=== PATIENT | female | born 2000 | race American Indian/Alaskan Native ===

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

== ENCOUNTER 2018-09-22 19:53 | Emergency (ER) | payer MEDICAID ==
[2018-09-22] MEDS ORDERED: Ibuprofen 800 MG Tab PO ONE (20:07)
--- NOTE | 2018-09-22 20:08 | EDM.PDOC ---
ED HPI GENERAL MEDICAL PROBLEM - General Chief Complaint: ENT Problem Stated Complaint: SWOLLEN TONSILLES Time Seen by Provider: 09/22/18 20:07 Source of Information: Reports: Patient History Limitations: Reports: No Limitations - History of Present Illness INITIAL COMMENTS - FREE TEXT/NARRATIVE: sick with fever sore throat 2 weeks not better. Throat Pain Score (Numeric/FACES): 8 - Related Data Allergies Allergy/AdvReac Type Severity Reaction Status Date / Time No Known Allergies Allergy Verified 09/22/18 20:11 Home Meds: Home Meds . 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: 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 History: Reports: None Neurological History: Reports: None Psychiatric History: Reports: None Endocrine/Metabolic History: Reports: Diabetes, Gestational Hematologic History: Reports: None Immunologic History: Reports: None Oncologic (Cancer) History: Reports: None Dermatologic History: Reports: None - Infectious Disease History Infectious Disease History: Reports: None - Past Surgical History Head Surgeries/Procedures: Reports: None HEENT Surgical History: Reports: None Cardiovascular Surgical History: Reports: None Respiratory Surgical History: Reports: None GI Surgical History: Reports: None Female Surgical History: Reports: None Endocrine Surgical History: Reports: None Neurological Surgical History: Reports: None 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 Surgical History: Reports: None Oncologic Surgical History: Reports: None Dermatological Surgical History: Reports: None Social & Family History - Family History HEENT: Reports: None Cardiac: Reports: Hypertension Respiratory: Reports: None GI: Reports: None : Reports: None OBGYN: Reports: None 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: Reports: None Neurological: Reports: None Psychiatric: Reports: None Endocrine/Metabolic: Reports: Diabetes, type II Hematologic: Reports: None Immunologic: Reports: None Dermatologic: Reports: None Oncologic: Reports: None - Caffeine Use Caffeine Use: Reports: None - Living Situation & Occupation Living situation: Reports: with Family ED ROS ENT - Review of Systems Review Of Systems: ROS reveals no pertinent complaints other than HPI. ED EXAM, ENT - Physical Exam Exam: See Below Exam Limited By: No Limitations General Appearance: Alert, WD/WN, Mild Distress, Other (discomfort) Ears: Hearing Grossly Normal Mouth/Throat: Pharyngeal Erythema, Tonsillar Erythema, Tonsillar Swelling Head: Atraumatic Neck: Non-Tender, Full Range of Motion Respiratory/Chest: No Respiratory Distress Cardiovascular: Regular Rate, Rhythm GI/Abdominal: Soft, Non-Tender Neurological: Alert, Oriented, Normal Cognition, Normal Gait, No Motor/Sensory Deficits Psychiatric: Flat Affect Skin: Warm, Dry, Normal Color Lymphatic: No Adenopathy Course - Vital Signs Last Recorded V/S: Last Vital Signs Temp 38.3 C H 09/22/18 20:12 Pulse 114 H 09/22/18 20:11 Resp 18 09/22/18 20:11 BP 137/75 09/22/18 20:11 Pulse Ox 99 09/22/18 20:11 - Orders/Labs/Meds Orders: Active Orders 24 hr Category Date Time Status Amoxicillin [Amoxil] Med 09/22/18 20:21 Once 500 mg PO ONETIME ONE Meds: Medications Discontinued Medications Generic Name Dose Route Start Last Admin Trade Name Connor PRN Reason Stop Dose Admin Ibuprofen 800 mg 09/22/18 20:07 09/22/18 20:12 Motrin PO 09/22/18 20:08 800 mg ONETIME ONE Administration - Re-Assessments/Exams Free Text/Narrative Re-Assessment/Exam: 09/22/18 20:22 results discussed with pt Departure - Departure Time of Disposition: 20:22 Disposition: Home, Self-Care 01 Condition: Good Clinical Impression: Streptococcal tonsillopharyngitis - Discharge Information Instructions: Strep Throat, [id number] Forms: ED Department Discharge Additional Instructions: 1) avoid solid foods 2) take tylenol or motrin for fever and aches 3) recheck as needed rx givven; amox 250mg tid x 30 - My Orders Last 24 Hours: My Active Orders 09/22/18 20:21 Amoxicillin [Amoxil] 500 mg PO ONETIME ONE - Assessment/Plan Last 24 Hours: My Active Orders 09/22/18 20:21 Amoxicillin [Amoxil] 500 mg PO ONETIME ONE
[2018-09-22 20:16] VITALS: BP 137/75
[2018-09-22] MEDS ORDERED: Amoxicillin 500 MG Cap PO ONE (20:21)
== END 2018-09-22 20:33 | disposition home or self-care (01) ==
LOC: DL.ED 19:53
DX: J03.00 Acute streptococcal tonsillitis, unspecified (principal)
CPT/HCPCS: 87430; 99282; A9270

== ENCOUNTER 2018-10-13 04:25 | Emergency (ER) | payer MEDICAID ==
[2018-10-13] MEDS ORDERED: Sodium Chloride 0.9% 10 ML Syringe FLUSH PRN (04:29)
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
[2018-10-13 04:44] VITALS: BP 132/86; PULSE 120
[2018-10-13 04:51] LABS: ANION GAP 16.4; CHLORIDE,CL 107 mmol/L (101-111); SODIUM,NA 141 mmol/L (135-145)
[2018-10-13 04:53] LABS: ACETAMINOPHEN < 10.0 ug/mL
[2018-10-13] MEDS ORDERED: Lidocaine 1% 30 ML SDV INJECT ONE (04:53)
[2018-10-13] MEDS ORDERED: Bacitracin Oint 1 GM U/D Packet TOP ONE (04:53)
[2018-10-13] MEDS ORDERED: Sodium Chloride 0.9% 1,000 ML IV ONE (04:53)
== END 2018-10-13 05:40 | disposition home or self-care (01) ==
LOC: DL.ED 04:25
DX: S61.512A Laceration without foreign body of left wrist, initial encounter (principal); F10.129 Alcohol abuse with intoxication, unspecified; Y90.8 Blood alcohol level of 240 mg/100 ml or more; X78.8XXA Intentional self-harm by other sharp object, initial encounter
CPT/HCPCS: 12002; 36415; 80053; 80305; 81001; 81025; 85025; 87086; 87088; 87186; 99285; G0480; J2001

== ENCOUNTER 2019-08-05 01:31 | Emergency (ER) | payer MEDICAID ==
--- NOTE | 2019-08-05 02:11 | EDM.PDOC ---
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 Patient for the past 3-4 days has had increasing frequency and severity of left lower quadrant pain that radiates into her back. She has had nausea without vomiting. No flank pain. She does have some back pain. No vaginal discharge or bleeding. She does complain of painful frequent urination. No fever no chills. No weakness dizziness lightheadedness. She is a 2 para 1 about 6 weeks gestation and has not had an ultrasound. 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: 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 History: Reports: None Neurological History: Reports: None Psychiatric History: Reports: None Other Psychiatric History: self harm/cutting Endocrine/Metabolic History: Reports: Diabetes, Gestational Hematologic History: Reports: None Immunologic History: Reports: None Oncologic (Cancer) History: Reports: None Dermatologic History: Reports: None - Infectious Disease History Infectious Disease History: Reports: None - Past Surgical History Head Surgeries/Procedures: Reports: None HEENT Surgical History: Reports: None Cardiovascular Surgical History: Reports: None Respiratory Surgical History: Reports: None GI Surgical History: Reports: None Female Surgical History: Reports: None Endocrine Surgical History: Reports: None Neurological Surgical History: Reports: None 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 Surgical History: Reports: None Oncologic Surgical History: Reports: None Dermatological Surgical History: Reports: None Social & Family History - Family History Family Medical History: Noncontributory HEENT: Reports: None Cardiac: Reports: Hypertension Respiratory: Reports: None GI: Reports: None : Reports: None OBGYN: Reports: None 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: Reports: None Neurological: Reports: None Psychiatric: Reports: None Endocrine/Metabolic: Reports: Diabetes, type II Hematologic: Reports: None Immunologic: Reports: None Dermatologic: Reports: None Oncologic: Reports: None - Tobacco Use Smoking Status *Q: Never Smoker Second Hand Smoke Exposure: No - Caffeine Use Caffeine Use: Reports: Soda - Recreational Drug Use Recreational Drug Use: No - Living Situation & Occupation Living situation: Reports: with Family ED ROS GENERAL - Review of Systems Review Of Systems: Comprehensive ROS is negative, except as noted in HPI. ED EXAM, GI/ABD - Physical Exam Exam: See Below Exam Limited By: No Limitations General Appearance: Alert, WD/WN, No Apparent Distress Respiratory/Chest: No Respiratory Distress, Lungs Clear, Normal Breath Sounds, No Accessory Muscle Use Cardiovascular: Normal Peripheral Pulses, Regular Rate, Rhythm GI/Abdominal Exam: Normal Bowel Sounds, Soft, Tender (Mild left lower quadrant without guarding or rebound. ) Back Exam: No: CVA Tenderness (L), CVA Tenderness (R) Extremities: Normal Inspection, Normal Range of Motion, Normal Capillary Refill Neurological: Alert, Oriented, Normal Cognition, No Motor/Sensory Deficits Psychiatric: Normal Affect, Normal Mood Skin Exam: Warm, Dry, Intact, Normal Color Course - Vital Signs Last Recorded V/S: Last Vital Signs Temp 37.0 C 08/05/19 04:47 Pulse 98 08/05/19 04:47 Resp 19 08/05/19 04:47 BP 127/75 08/05/19 04:47 Pulse Ox 99 08/05/19 04:47 - Orders/Labs/Meds Orders: Active Orders 24 hr Category Date Time Status CULTURE URINE [RM] Stat Lab 08/05/19 02:13 Received cephALEXin [Keflex] Med 08/05/19 05:12 Once 500 mg PO ONETIME ONE Labs: Laboratory Tests 08/05/19 08/05/19 08/05/19 Range/Units 02:03 02:03 02:03 WBC 12.0 H (5.0-10.0) 10^3/uL RBC 4.22 (4.2-5.4) 10^6/uL Hgb 12.7 D (12.0-16.0) g/dL Hct 36.7 L (37.0-47.0) % MCV 87.0 (80-100) fL MCH 30.1 (27.0-34.0) pg MCHC 34.6 (33.0-35.0) g/dL Plt Count 281 D (150-450) 10^3/uL Neut % (Auto) 67.4 (42.2-75.2) % Lymph % (Auto) 22.5 (20.5-50.1) % [place] % (Auto) 8.2 H (2-8) % Eos % (Auto) 1.7 (1.0-3.0) % Baso % (Auto) 0.2 (0.0-1.0) % Sodium 134 L (135-145) mmol/L Potassium 3.5 L (3.6-5.0) mmol/L Chloride 106 (101-111) mmol/L Carbon Dioxide 21.0 (21.0-31.0) mmol/L Anion Gap 10.5 BUN 8 (7-18) mg/dL Creatinine 0.5 L (0.6-1.3) mg/dL Est Cr Clr Drug Dosing 168.02 mL/min Estimated GFR (MDRD) > 60 BUN/Creatinine Ratio 16.00 Glucose 178 H (74-105) mg/dL Calcium 8.8 (8.4-10.2) mg/dl Total Bilirubin 0.5 (0.2-1.0) mg/dL AST 26 (10-42) IU/L ALT 39 (10-60) IU/L Alkaline Phosphatase 92 (42-121) IU/L Total Protein 7.8 (6.7-8.2) g/dl Albumin 4.0 (3.2-5.5) g/dl Globulin 3.8 Albumin/Globulin Ratio 1.05 HCG, Quant 662 H (0-25) mIU/ml Beta HCG, Quant TNP Urine Color (YELLOW) Urine Appearance (CLEAR) Urine pH (5.0-9.0) Ur Specific R[place] (1.005-1.030) Urine Protein (NEGATIVE) Urine Glucose (UA) (NEGATIVE) Urine Ketones (NEGATIVE) Urine Occult Blood (NEGATIVE) Urine Nitrite (NEGATIVE) Urine Bilirubin (NEGATIVE) Urine Urobilinogen (0.2-1.0) mg/dL Ur Leukocyte Esterase (NEGATIVE) Urine RBC /HPF Urine WBC (0-5/HPF) /HPF Ur Epithelial Cells (NOT SEEN) /HPF Amorphous Sediment (NOT SEEN) /HPF Urine Bacteria (0-FEW/HPF) /HPF Urine Opiates Screen (NEGATIVE) Ur Oxycodone Screen (NEGATIVE) Urine Methadone Screen (NEGATIVE) Ur Barbiturates Screen (NEGATIVE) U Tricyclic Antidepress (NEGATIVE) Ur Phencyclidine Scrn (NEGATIVE) Ur Amphetamine Screen (NEGATIVE) U Methamphetamines Scrn (NEGATIVE) Urine MDMA Screen (NEGATIVE) U Benzodiazepines Scrn (NEGATIVE) Urine Cocaine Screen (NEGATIVE) U Marijuana (THC) Screen (NEGATIVE) 08/05/19 08/05/19 Range/Units 02:13 02:13 WBC (5.0-10.0) 10^3/uL RBC (4.2-5.4) 10^6/uL Hgb (12.0-16.0) g/dL Hct (37.0-47.0) % MCV (80-100) fL MCH (27.0-34.0) pg MCHC (33.0-35.0) g/dL Plt Count (150-450) 10^3/uL Neut % (Auto) (42.2-75.2) % Lymph % (Auto) (20.5-50.1) % [place] % (Auto) (2-8) % Eos % (Auto) (1.0-3.0) % Baso % (Auto) (0.0-1.0) % Sodium (135-145) mmol/L Potassium (3.6-5.0) mmol/L Chloride (101-111) mmol/L Carbon Dioxide (21.0-31.0) mmol/L Anion Gap BUN (7-18) mg/dL Creatinine (0.6-1.3) mg/dL Est Cr Clr Drug Dosing mL/min Estimated GFR (MDRD) BUN/Creatinine Ratio Glucose (74-105) mg/dL Calcium (8.4-10.2) mg/dl Total Bilirubin (0.2-1.0) mg/dL AST (10-42) IU/L ALT (10-60) IU/L Alkaline Phosphatase (42-121) IU/L Total Protein (6.7-8.2) g/dl Albumin (3.2-5.5) g/dl Globulin Albumin/Globulin Ratio HCG, Quant (0-25) mIU/ml Beta HCG, Quant Urine Color Yellow (YELLOW) Urine Appearance Cloudy (CLEAR) Urine pH 7.0 (5.0-9.0) Ur Specific R[place] 1.025 (1.005-1.030) Urine Protein Negative (NEGATIVE) Urine Glucose (UA) 100 H (NEGATIVE) Urine Ketones Negative (NEGATIVE) Urine Occult Blood Negative (NEGATIVE) Urine Nitrite Negative (NEGATIVE) Urine Bilirubin Negative (NEGATIVE) Urine Urobilinogen 0.2 (0.2-1.0) mg/dL Ur Leukocyte Esterase Small H (NEGATIVE) Urine RBC Not seen /HPF Urine WBC 5-10 H (0-5/HPF) /HPF Ur Epithelial Cells Moderate H (NOT SEEN) /HPF Amorphous Sediment Moderate H (NOT SEEN) /HPF Urine Bacteria Few (0-FEW/HPF) /HPF Urine Opiates Screen Negative (NEGATIVE) Ur Oxycodone Screen Negative (NEGATIVE) Urine Methadone Screen Negative (NEGATIVE) Ur Barbiturates Screen Negative (NEGATIVE) U Tricyclic Antidepress Negative (NEGATIVE) Ur Phencyclidine Scrn Negative (NEGATIVE) Ur Amphetamine Screen Negative (NEGATIVE) U Methamphetamines Scrn Negative (NEGATIVE) Urine MDMA Screen Negative (NEGATIVE) U Benzodiazepines Scrn Negative (NEGATIVE) Urine Cocaine Screen Negative (NEGATIVE) U Marijuana (THC) Screen Negative (NEGATIVE) - Re-Assessments/Exams Free Text/Narrative Re-Assessment/Exam: 08/05/19 05:22 UA appears mildly infectious will start on Cephalexin and culture the urine. HCG is mid 600s US per radiology no intrauterine gestational sac with estimated gestational age of 5 weeks 4 days. No embryo or heart rate identified. Recommend correlation with serial beta hCGs to assess for interval change in short-term follow-up repeat scan as clinically indicated. We will have the patient see her OB provider in the next 48 hours and have quant Hcg evaluated. Cephalexin and urine culture. She is understanding of this and her questions answered. She is comfortable with the plan. Departure - Departure Time of Disposition: 05:12 Disposition: Home, Self-Care 01 Clinical Impression: 5 weeks gestation of UTI (urinary tract infection) Qualifiers: Urinary tract infection type: site unspecified Hematuria presence: without hematuria Qualified Code(s): N39.0 - Urinary tract infection, site not specified - Discharge Information Instructions: Urinary Tract Infection, Adult, [id number] Forms: ED Department Discharge Additional Instructions: Increase fluids over the next few days. Cephalexin 1 capsule 4 times a day for the next 7 days. RX given to the patient. #28 See PCP or OB provider in 2 days for recheck of Hcg quantitative in the blood. Return to the ED if new or worsening symptoms. Sepsis Event Note - Evaluation Sepsis Screening Result: No Definite Risk - Focused Exam Vital Signs: Vital Signs Temp Pulse Resp BP Pulse Ox 08/05/19 04:47 37.0 C 98 19 127/75 99 08/05/19 01:49 36.4 C 89 19 113/75 100 Date Exam was Performed: 08/05/19 Time Exam was Performed: 05:12 - My Orders Last 24 Hours: My Active Orders 08/05/19 02:13 CULTURE URINE [RM] Stat 08/05/19 05:12 cephALEXin [Keflex] 500 mg PO ONETIME ONE - Assessment/Plan Last 24 Hours: My Active Orders 08/05/19 02:13 CULTURE URINE [RM] Stat 08/05/19 05:12 cephALEXin [Keflex] 500 mg PO ONETIME ONE Assessment:: 5 weeks gestation. UTI Plan: Increase fluids over the next few days. Cephalexin 1 capsule 4 times a day for the next 7 days. RX given to the patient. #28 See PCP or OB provider in 2 days for recheck of Hcg quantitative in the blood. Return to the ED if new or worsening symptoms.
[2019-08-05 02:29] LABS: ANION GAP 10.5; CHLORIDE,CL 106 mmol/L (101-111); SODIUM,NA 134 mmol/L (135-145)
[2019-08-05 04:48] VITALS: BP 127/75; PULSE 98
[2019-08-05] MEDS ORDERED: Cephalexin 500 MG Cap PO ONE (05:12)
== END 2019-08-05 05:23 | disposition home or self-care (01) ==
LOC: DL.ED 01:31
DX: O23.41 Unspecified infection of urinary tract in pregnancy, first trimester (principal); Z3A.01 Less than 8 weeks gestation of pregnancy
CPT/HCPCS: 36415; 76815; 76817; 80053; 80305; 81001; 84702; 85025; 87086; 87088; 87186; 99284; A9270

== ENCOUNTER 2020-03-22 20:08 | Inpatient (IN) | payer MEDICAID, OTHER ==
[2020-03-22] MEDS ORDERED: Penicillin G Potassium 5 MILLUNITS in Sodium Chloride 0.9% 100 ML IV ONE (20:50)
[2020-03-22] MEDS ORDERED: Lactated Ringers 1,000 ML IV SCH ×2 (21:00→22:15)
[2020-03-22] MEDS ORDERED: fentaNYL 100 MCG/2 ML SDV IVPUSH PRN (22:04)
[2020-03-22] MEDS ORDERED: Carboprost Tromethamine 250 MCG/1 ML Amp IM PRN (22:04)
[2020-03-22] MEDS ORDERED: Lactated Ringers 1,000 ML IV ONE (22:04)
[2020-03-22] MEDS ORDERED: Lidocaine 1% 30 ML SDV INJECT PRN (22:04)
[2020-03-22] MEDS ORDERED: Sodium Chloride 0.9% 10 ML Syringe FLUSH PRN (22:04)
[2020-03-22] MEDS ORDERED: Ondansetron 4 MG/2 ML SDV IVPUSH PRN (22:04)
[2020-03-22] MEDS ORDERED: Methylergonovine 0.2 MG/1 ML Amp IM PRN (22:04)
[2020-03-22] MEDS ORDERED: Tranexamic Acid 1,000 MG in Sodium Chloride 0.9% 100 ML IV PRN (22:04)
[2020-03-22] MEDS ORDERED: Butorphanol 2 MG/ML SDV IVPUSH PRN ×2 (22:04)
[2020-03-22] MEDS ORDERED: Misoprostol 400 MCG (4 X 100 MCG TAB) RECTAL PRN (22:04)
[2020-03-22] MEDS ORDERED: Oxytocin/Normal Saline 30 UNIT/500 ML BAG IV SCH (22:15)
[2020-03-23] MEDS ORDERED: Sodium Chloride 0.9% 20 ML SDV ONE (00:01)
[2020-03-23] MEDS ORDERED: fentaNYL 100 MCG/2 ML SDV ITHECAL ONE (00:01)
[2020-03-23] MEDS ORDERED: Sodium Bicarbonate 4.2% 2.5 MEQ/5 ML SDV ONE ×2 (00:01→00:07)
[2020-03-23] MEDS ORDERED: EPINEPHrine 1 MG/1 ML Amp ONE ×2 (00:01→00:07)
[2020-03-23] MEDS ORDERED: fentaNYL 100 MCG/2 ML SDV ONE (00:07)
--- NOTE | 2020-03-23 00:34 | PCM.SN.2 ---
- Free Text/Narrative Note: Intrathecal, sitting position, sterile prep and drape. 1% lidocaine with bicarb for skinwheal to L2 L3 interspace. Introducer, 24 ga pencan x 1. Pos CSF, neg heme, neg parasthesia. 1:1000 pf epi wash, 20 mcg pf sufenta, 30 mcg pf fentanyl, 0.4 ml pf ns and 6 mg of 0.75% marcaine injected after CSF aspiration. Pt to L lateral position. Procedure time 0005 to 0035
--- NOTE | 2020-03-23 00:39 | PCM.LDHP ---
L&D History of Present Illness - General Date of Service: 03/22/20 Admit Problem/Dx: Patient Status Order with Admit Dx/Problem 03/22/20 22:04 Patient Status [ADT] Routine Admission Diagnosis/Problem Admission Diagnosis/Problem care Source of Information: Patient History Limitations: Reports: No Limitations - History of Present Illness Introduction:: 19-year-old at 37w1d presents to L&D for gross SROM at 1930. Patient was last seen in the clinic in January 2020. She is having some contractions that are regular but they are not very strong at this time. No vaginal bleeding. Baby has been active. No new headaches or vision changes. has been complicated by limited care, gestational diabetes (diet controlled) and history of chlamydia in --treated but test for cure not done. GBS is unknown. - Related Data Allergies/Adverse Reactions: Allergies Allergy/AdvReac Type Severity Reaction Status Date / Time No Known Allergies Allergy Verified 03/22/20 20:30 Home Medications: Home Meds Prenat 115/Iron Fum/Folic/Dss [ 19 Tablet] 1 tab PO DAILY 08/05/19 [History] Past Medical History - Past Health History Medical/Surgical History: Denies Medical/Surgical History HEENT History: Reports: None Cardiovascular History: Reports: None Respiratory History: Reports: None Gastrointestinal History: Reports: Gastritis Genitourinary History: Reports: None, STD, Other (See Below) Other Genitourinary History: chlamydia treated [employer] History: Reports: Other OB/BYN History: 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 History: Reports: None Neurological History: Reports: None Psychiatric History: Reports: None Other Psychiatric History: self harm/cutting Endocrine/Metabolic History: Reports: Diabetes, Gestational Hematologic History: Reports: None Immunologic History: Reports: None Oncologic (Cancer) History: Reports: None Dermatologic History: Reports: None - Infectious Disease History Infectious Disease History: Reports: None - Past Surgical History Head Surgeries/Procedures: Reports: None HEENT Surgical History: Reports: None Cardiovascular Surgical History: Reports: None Respiratory Surgical History: Reports: None GI Surgical History: Reports: None Female Surgical History: Reports: None Endocrine Surgical History: Reports: None Neurological Surgical History: Reports: None 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 Surgical History: Reports: None Oncologic Surgical History: Reports: None Dermatological Surgical History: Reports: None Social & Family History - Family History Family Medical History: Noncontributory HEENT: Reports: None Cardiac: Reports: Hypertension Respiratory: Reports: None GI: Reports: None : Reports: None OBGYN: Reports: None 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: Reports: None Neurological: Reports: None Psychiatric: Reports: None Endocrine/Metabolic: Reports: Diabetes, type II Hematologic: Reports: None Immunologic: Reports: None Dermatologic: Reports: None Oncologic: Reports: None - Tobacco Use Smoking Status *Q: Never Smoker Second Hand Smoke Exposure: No - Caffeine Use Caffeine Use: Reports: Coffee - Recreational Drug Use Recreational Drug Use: No - Living Situation & Occupation Living situation: Reports: with Family H&P Review of Systems - Review of Systems: Review Of Systems: See Below General: Reports: No Symptoms HEENT: Reports: No Symptoms Pulmonary: Reports: No Symptoms Cardiovascular: Reports: No Symptoms Gastrointestinal: Reports: No Symptoms 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: Reports: No Symptoms Skin: Reports: No Symptoms L&D Exam - Exam Exam: See Below - Vital Signs Vital Signs: Last Vital Signs Temp 36.9 C 03/22/20 22:23 Pulse 58 L 03/22/20 22:23 Resp 18 03/22/20 22:23 BP 119/67 03/22/20 22:23 Pulse Ox Weight: 89.358 kg - OB Specific Contraction Duration (sec): 40-60 Contraction Frequency (min): irregular Contraction Intensity: Mild to Moderate - Mauro Score Mauro Score Cervix Position: Posterior Mauro Score Consistency: Soft Mauro Score Effacement: 51-70% Mauro Score Dilation: > 5 cm Mauro Score Infant's Station: -2 Mauro Score Total: 8 - Exam General: Alert, Oriented HEENT: Conjunctiva Clear Lungs: Clear to Auscultation, Normal Respiratory Effort Cardiovascular: Regular Rate, Regular Rhythm. No: Systolic Murmur, Diastolic Murmur Genitourinary: Normal external exam Back Exam: Normal Inspection Extremities: Normal Inspection, No Pedal Edema Skin: Warm, Dry, Intact - Patient Data Lab Results Last 24 hrs: Laboratory Results - last 24 hr 03/22/20 03/22/20 03/22/20 Range/Units 20:39 21:05 21:33 WBC 10.7 H (5.0-10.0) 10^3/uL RBC 3.91 L (4.2-5.4) 10^6/uL Hgb 10.2 L (12.0-16.0) g/dL Hct 31.6 L (37.0-47.0) % MCV 80.8 D (80-100) fL MCH 26.1 L (27.0-34.0) pg MCHC 32.3 L (33.0-35.0) g/dL Plt Count 248 (150-450) 10^3/uL Urine Opiates Screen Negative (NEGATIVE) Ur Oxycodone Screen Negative (NEGATIVE) Urine Methadone Screen Negative (NEGATIVE) Ur Barbiturates Screen Negative (NEGATIVE) U Tricyclic Antidepress Negative (NEGATIVE) Ur Phencyclidine Scrn Negative (NEGATIVE) Ur Amphetamine Screen Negative (NEGATIVE) U Methamphetamines Scrn Negative (NEGATIVE) Urine MDMA Screen Negative (NEGATIVE) U Benzodiazepines Scrn Negative (NEGATIVE) Urine Cocaine Screen Negative (NEGATIVE) U Marijuana (THC) Screen Positive H (NEGATIVE) SARS CoV-2 RNA Rapid NAJMA Negative (NEGATIVE) Result Diagrams: 03/22/20 21:05 - Problem List (1) care in third trimester SNOMED Code(s): 504554683, 13230936, 28622878, 200308631, 368784936 ICD Code: Z34.93 - ENCNTR FOR SUPRVSN OF NORMAL PREG, UNSP, THIRD TRIMESTER Status: Acute Current Visit: Yes (2) Chlamydia infection affecting SNOMED Code(s): 5342201714939 ICD Code: O98.819 - OTH MATERNAL INFEC/PARASTC DISEASES COMP PREG, UNSP TRI; A74.9 - CHLAMYDIAL INFECTION, UNSPECIFIED Status: Acute Current Visit: Yes (3) Anemia affecting in third trimester SNOMED Code(s): 03382175, 49617501 ICD Code: O99.013 - ANEMIA COMPLICATING , THIRD TRIMESTER Status: Acute Current Visit: Yes Problem List Initiated/Reviewed/Updated: Yes Orders Last 24hrs: Active Orders 24 hr Category Date Time Status Patient Status [ADT] Routine ADT 03/22/20 22:04 Active Communication Order [RC] ASDIRECTED Care 03/22/20 22:04 Active Heart Tones [RC] PER UNIT ROUTINE Care 03/22/20 22:04 Active Nitrous Oxide Delivery [RC] ASDIRECTED Care 03/22/20 22:09 Active Notify Provider Vital Signs OB [RC] ASDIRECTED Care 03/22/20 22:04 Active Notify Provider [RC] PRN Care 03/22/20 22:04 Active OB Discontinue Nitrous Oxide [RC] ASDIRECTED Care 03/22/20 22:09 Active Pump Management, Intrathecal [RC] ASDIRECTED Care 03/22/20 22:04 Active Up ad Olesya [RC] ASDIRECTED Care 03/22/20 22:04 Active Vital Signs [RC] PER UNIT ROUTINE Care 03/22/20 22:04 Active Clear Liquid Diet [DIET] Diet 03/23/20 Breakfast Active Acetaminophen [TylenoL] Med 03/22/20 22:04 Active 650 mg PO Q4H PRN Butorphanol [Stadol] Med 03/22/20 22:04 Active 0.5 mg IVPUSH Q3H PRN Butorphanol [Stadol] Med 03/22/20 22:04 Active 1 mg IVPUSH Q3H PRN Carboprost Tromethamine [Hemabate DS] Med 03/22/20 22:04 Active 250 mcg IM ASDIRECTED PRN Lactated Ringers [Ringers, Lactated] 1,000 ml Med 03/22/20 21:00 Active IV ASDIRECTED Lactated Ringers [Ringers, Lactated] 1,000 ml Med 03/22/20 22:15 Active IV ASDIRECTED Lidocaine 1% [Xylocaine-MPF 1%] Med 03/22/20 22:04 Active 30 ml INJECT ASDIRECTED PRN Methylergonovine [Methergine] Med 03/22/20 22:04 Active 0.2 mg IM ASDIRECTED PRN Ondansetron [Zofran] Med 03/22/20 22:04 Active 4 mg IVPUSH Q4H PRN Oxytocin/Normal Saline [Pitocin in NS 30 UNIT/500 ML] Med 03/22/20 22:15 Active 30 unit in 500 ml IV TITRATE Penicillin G Potassium [Pfizerpen] 3 millunits Med 03/23/20 02:00 Active Sodium Chloride 0.9% [Normal Saline] 100 ml IV Q4HR Sodium Chloride 0.9% [Saline Flush] Med 03/22/20 22:04 Active 10 ml FLUSH ASDIRECTED PRN Tranexamic Acid [Cyklokapron] 1,000 mg Med 03/22/20 22:04 Active Sodium Chloride 0.9% [Normal Saline] 100 ml IV ONETIME fentaNYL [Sublimaze] Med 03/22/20 22:04 Active 100 mcg IVPUSH Q1H PRN miSOPROStoL [Cytotec] Med 03/22/20 22:04 Active 800 mcg RECTAL ASDIRECTED PRN Saline Lock Insert [OM.PC] Routine Oth 03/22/20 22:04 Ordered Resuscitation Status Routine Resus Stat 03/22/20 22:04 Ordered Medication Orders Acetaminophen (Tylenol) 650 mg PO Q4H PRN PRN Reason: Pain (Mild 1-3) and fever Butorphanol Tartrate (Stadol) 0.5 mg IVPUSH Q3H PRN PRN Reason: Pain Butorphanol Tartrate (Stadol) 1 mg IVPUSH Q3H PRN PRN Reason: Pain Carboprost Tromethamine (Hemabate Ds) 250 mcg IM ASDIRECTED PRN PRN Reason: HEMORRHAGE Fentanyl (Sublimaze) 100 mcg IVPUSH Q1H PRN PRN Reason: Pain (moderate 4-6) Lactated Ringer's (Ringers, Lactated) 1,000 mls @ 125 mls/hr IV ASDIRECTED [facility] Last Admin: 03/22/20 21:35 Dose: 125 mls/hr Documented by: SYLLMEG Lactated Ringer's (Ringers, Lactated) 1,000 mls @ 125 mls/hr IV ASDIRECTED [facility] Last Admin: 03/23/20 00:17 Dose: 125 mls/hr Documented by: SYLLMEG Tranexamic Acid 1,000 mg/ (Sodium Chloride) 110 mls @ 660 mls/hr IV ONETIME PRN PRN Reason: Bleeding Penicillin G Potassium 3 (millunits/ Sodium Chloride) 100 mls @ 200 mls/hr IV Q4HR [facility] Oxytocin/Sodium Chloride (Pitocin In Ns 30 Unit/500 Ml) 30 unit in 500 mls @ 2 mls/hr IV TITRATE [facility]; Protocol Last Admin: 03/23/20 00:01 Dose: 1 munits/min, 1 mls/hr Documented by: SYLLMEG Lidocaine HCl (Xylocaine-Mpf 1%) 30 ml INJECT ASDIRECTED PRN PRN Reason: Perineal Repair Methylergonovine Maleate (Methergine) 0.2 mg IM ASDIRECTED PRN PRN Reason: Hemorrhage Misoprostol (Cytotec) 800 mcg RECTAL ASDIRECTED PRN PRN Reason: Hemorrhage Ondansetron HCl (Zofran) 4 mg IVPUSH Q4H PRN PRN Reason: Nausea/Vomiting Last Admin: 03/23/20 00:02 Dose: 4 mg Documented by: VIRGILIO Sodium Chloride (Saline Flush) 10 ml FLUSH ASDIRECTED PRN PRN Reason: Keep Vein Open Assessment/Plan Comment:: 19-year-old at 37w1d presenting with SROM 1. Admit to L&D 2. PCN for GBS unknown status 3. Will initiate pitocin for augmentation 4. Patient desires intrathecal 5. Will obtain repeat STD testing and syphilis antibodies 6. Expectant management. Anticipate Wendy Alberto MD
[2020-03-23] MEDS ORDERED: Penicillin G Potassium 3 MILLUNITS in Sodium Chloride 0.9% 100 ML IV SCH (02:00)
[2020-03-23] MEDS ORDERED: Benzocaine/Menthol 20%-0.5% Spray 56 GM Canister TOP PRN (03:29)
[2020-03-23] MEDS ORDERED: Simethicone 80 MG Tab.Chew PO PRN (03:29)
[2020-03-23] MEDS ORDERED: Oxytocin 10 Units/1 ML SDV IM PRN (03:29)
--- NOTE | 2020-03-23 03:38 | PCM.DEL ---
L & D Note - General Info Date of Service: 03/23/20 Mother's Due Date: 04/11/20 - Delivery Note Labor: Spontaneous, Augmented by Oxytocin Delivery Outcome: Livebirth Infant Delivery Method: Spontaneous Vaginal Delivery-Single Presentation: Vertex Nuchal Cord: None Anesthesia Type: Intrathecal Amniotic Fluid Description: Meconium Stained Episiotomy Type: None Laceration: None Placenta: Intact, Spontaneous Cord: 3 Vessels Estimated Blood Loss: 300 : Bulb Syringe, Stimulated, Warmed, [place] Used Provider: Wendy Alberto Score 1 min: 8 Score 5 min: 9 Delivery Comments (Free Text/Narrative):: 19-year-old at 37w1d presented to L&D on 03/22 with SROM at 1930. Patient was monitored and was noted to have an irregular contraction pattern so pitocin was started for augmentation of labor. Patient received intrathecal for pain control. She progressed to complete dilation around 0300 on 03/23. Patient pushed for 2 contractions and delivered a viable female infant with Apgars of 8 and 9 at 1 and 5 minutes respectively. Infant was placed on the patient's chest. Umbilical cord was clamped x2 and cut by the partner. Cord blood was collected. The placenta delivered 3 minutes after the and was noted to be intact. Pitocin was initiated, and uterine massage was performed. A small initial "gush" of blood was noted; however, the uterus then became firm and bleeding decreased significantly. Perineum was inspected and noted to be intact. Bleeding was again noted to be appropriate. Patient tolerated the procedure well, and there were no immediate complications. Induction Criteria - Augmentation Estimated Pelvis: Reports: Adequate Weight Estimated:: Reports: AGA Reassuring Monitoring Strip: Yes Absence of Tachy Systole: Yes - General Info Date of Service: 03/23/20 - Patient Data Vitals - Most Recent: Last Vital Signs Temp 36.0 C L 03/23/20 01:15 Pulse 48 L 03/23/20 02:15 Resp 16 03/23/20 02:15 BP 124/49 L 03/23/20 02:15 Pulse Ox 99 03/23/20 00:45 Weight - Most Recent: 89.358 kg I&O - Last 24 Hours: Intake & Output 03/22/20 03/22/20 03/23/20 14:59 22:59 06:59 Intake Total 1100 Balance 1100 Lab Results Last 24 Hours: Laboratory Results - last 24 hr 03/22/20 03/22/20 03/22/20 Range/Units 20:39 21:05 21:33 WBC 10.7 H (5.0-10.0) 10^3/uL RBC 3.91 L (4.2-5.4) 10^6/uL Hgb 10.2 L (12.0-16.0) g/dL Hct 31.6 L (37.0-47.0) % MCV 80.8 D (80-100) fL MCH 26.1 L (27.0-34.0) pg MCHC 32.3 L (33.0-35.0) g/dL Plt Count 248 (150-450) 10^3/uL Urine Opiates Screen Negative (NEGATIVE) Ur Oxycodone Screen Negative (NEGATIVE) Urine Methadone Screen Negative (NEGATIVE) Ur Barbiturates Screen Negative (NEGATIVE) U Tricyclic Antidepress Negative (NEGATIVE) Ur Phencyclidine Scrn Negative (NEGATIVE) Ur Amphetamine Screen Negative (NEGATIVE) U Methamphetamines Scrn Negative (NEGATIVE) Urine MDMA Screen Negative (NEGATIVE) U Benzodiazepines Scrn Negative (NEGATIVE) Urine Cocaine Screen Negative (NEGATIVE) U Marijuana (THC) Screen Positive H (NEGATIVE) SARS CoV-2 RNA Rapid NAJMA Negative (NEGATIVE) Med Orders - Current: Current Medications Acetaminophen (Tylenol) 650 mg PO Q4H PRN PRN Reason: Pain (Mild 1-3) and fever Carboprost Tromethamine (Hemabate Ds) 250 mcg IM ASDIRECTED PRN PRN Reason: HEMORRHAGE Lactated Ringer's (Ringers, Lactated) 1,000 mls @ 125 mls/hr IV ASDIRECTED [facility] Last Admin: 03/22/20 21:35 Dose: 125 mls/hr Documented by: Lactated Ringer's (Ringers, Lactated) 1,000 mls @ 125 mls/hr IV ASDIRECTED [facility] Last Admin: 03/23/20 00:17 Dose: 125 mls/hr Documented by: Tranexamic Acid 1,000 mg/ (Sodium Chloride) 110 mls @ 660 mls/hr IV ONETIME PRN PRN Reason: Bleeding Oxytocin/Sodium Chloride (Pitocin In Ns 30 Unit/500 Ml) 30 unit in 500 mls @ 2 mls/hr IV TITRATE [facility]; Protocol Last Titration: 03/23/20 03:29 Dose: 250 munits/min, 250 mls/hr Documented by: Lidocaine HCl (Xylocaine-Mpf 1%) 30 ml INJECT ASDIRECTED PRN PRN Reason: Perineal Repair Methylergonovine Maleate (Methergine) 0.2 mg IM ASDIRECTED PRN PRN Reason: Hemorrhage Misoprostol (Cytotec) 800 mcg RECTAL ASDIRECTED PRN PRN Reason: Hemorrhage Sodium Chloride (Saline Flush) 10 ml FLUSH ASDIRECTED PRN PRN Reason: Keep Vein Open Discontinued Medications Butorphanol Tartrate (Stadol) 0.5 mg IVPUSH Q3H PRN PRN Reason: Pain Butorphanol Tartrate (Stadol) 1 mg IVPUSH Q3H PRN PRN Reason: Pain Epinephrine HCl (Adrenalin) Confirm Administered Dose 1 mg .ROUTE .STK-MED ONE Stop: 03/23/20 00:08 Last Admin: 03/23/20 00:41 Dose: Not Given Documented by: Fentanyl (Sublimaze) 100 mcg IVPUSH Q1H PRN PRN Reason: Pain (moderate 4-6) Fentanyl (Sublimaze) Confirm Administered Dose 100 mcg .ROUTE .STK-MED ONE Stop: 03/23/20 00:08 Last Admin: 03/23/20 00:41 Dose: Not Given Documented by: Penicillin G Potassium 5 (millunits/ Sodium Chloride) 100 mls @ 200 mls/hr IV ONETIME ONE Stop: 03/22/20 21:19 Last Admin: 03/22/20 21:35 Dose: 200 mls/hr Documented by: Lactated Ringer's (Ringers, Lactated) 1,000 mls @ 999 mls/hr IV BOLUS ONE Stop: 03/22/20 23:04 Penicillin G Potassium 3 (millunits/ Sodium Chloride) 100 mls @ 200 mls/hr IV Q4HR [facility] Last Admin: 03/23/20 01:40 Dose: 200 mls/hr Documented by: Ondansetron HCl (Zofran) 4 mg IVPUSH Q4H PRN PRN Reason: Nausea/Vomiting Last Admin: 03/23/20 00:02 Dose: 4 mg Documented by: Sodium Bicarbonate (Sodium Bicarbonate 4.2%) Confirm Administered Dose 2.5 meq .ROUTE .STK-MED ONE Stop: 03/23/20 00:08 Last Admin: 03/23/20 00:41 Dose: Not Given Documented by: Sufentanil Citrate (Sufenta) Confirm Administered Dose 50 mcg .ROUTE .STK-MED ONE Stop: 03/23/20 00:08 Last Admin: 03/23/20 00:41 Dose: Not Given Documented by: - Problem List & Annotations (1) care in third trimester SNOMED Code(s): 369580882, 92411631, 39729873, 179651005, 985137098 Code(s): Z34.93 - ENCNTR FOR SUPRVSN OF NORMAL PREG, UNSP, THIRD TRIMESTER Status: Acute Current Visit: Yes (2) Chlamydia infection affecting SNOMED Code(s): 7242033446647 Code(s): O98.819 - OTH MATERNAL INFEC/PARASTC DISEASES COMP PREG, UNSP TRI; A74.9 - CHLAMYDIAL INFECTION, UNSPECIFIED Status: Acute Current Visit: Yes (3) Anemia affecting in third trimester SNOMED Code(s): 41163442, 26786459 Code(s): O99.013 - ANEMIA COMPLICATING , THIRD TRIMESTER Status: Acute Current Visit: Yes (4) (normal spontaneous vaginal delivery) SNOMED Code(s): 24681636, 252601663 Code(s): O80 - ENCOUNTER FOR FULL-TERM UNCOMPLICATED DELIVERY Status: Acute Priority: High Current Visit: No - Problem List Review Problem List Initiated/Reviewed/Updated: Yes - My Orders Last 24 Hours: My Active Orders 03/22/20 21:00 Lactated Ringers [Ringers, Lactated] 1,000 ml IV ASDIRECTED 03/22/20 22:04 Patient Status [ADT] Routine Notify Provider Vital Signs OB [RC] ASDIRECTED Up ad Olesya [RC] ASDIRECTED Acetaminophen [TylenoL] 650 mg PO Q4H PRN Carboprost Tromethamine [Hemabate DS] 250 mcg IM ASDIRECTED PRN Lidocaine 1% [Xylocaine-MPF 1%] 30 ml INJECT ASDIRECTED PRN Methylergonovine [Methergine] 0.2 mg IM ASDIRECTED PRN Sodium Chloride 0.9% [Saline Flush] 10 ml FLUSH ASDIRECTED PRN Tranexamic Acid [Cyklokapron] 1,000 mg Sodium Chloride 0.9% [Normal Saline] 100 ml IV ONETIME miSOPROStoL [Cytotec] 800 mcg RECTAL ASDIRECTED PRN Saline Lock Insert [OM.PC] Routine Resuscitation Status Routine 03/22/20 22:15 Lactated Ringers [Ringers, Lactated] 1,000 ml IV ASDIRECTED Oxytocin/Normal Saline [Pitocin in NS 30 UNIT/500 ML] 30 unit in 500 ml IV TITRATE 03/23/20 03:29 Vital Signs [RC] PFP Benzocaine/Menthol [Dermoplast Pain Relief [place]] See Dose Instructions TOP Q4H PRN Docusate Sodium [Colace] 100 mg PO BID PRN Ibuprofen [Motrin] 800 mg PO Q8H PRN Oxytocin [Pitocin] 10 unit IM ONETIME PRN Simethicone 80 mg PO Q4H PRN witch Adalberto [Medi-Pads] 1 each TOP Q4HR PRN Assess Lochia [WOMSER] Per Unit Routine Assess Uterine Involution [WOMSER] Per Unit Routine Breast Pump [WOMSER] Per Unit Routine Ice Therapy [OM.PC] Per Unit Routine Perineal Care [OM.PC] Per Unit Routine Sitz Bath [OM.PC] Per Unit Routine 03/23/20 Breakfast Regular Diet [DIET] 03/23/20 08:00 Ferrous Sulfate 325 mg PO WITHBREAKFAST 03/23/20 09:00 Vit with Ca/FA/Iron [ Plus Iron] 1 each PO DAILY 03/24/20 06:00 CBC W/O DIFF,HEMOGRAM [HEME] Routine RPR (SYPHILIS SERO) W/ RFLX [REF] Routine - Assessment Assessment:: 19-year-old, now , s/p at 37w1d - Plan Plan:: 1. Admit to L&D 2. Initiate routine cares 3. Plans to bottle feed 4. Check CBC and syphilis antibodies tomorrow 5. Anticipate discharge 03/25/2020 Wendy Alberto MD
[2020-03-23] MEDS: Ferrous Sulfate 325 MG Tab PO SCH (09:07)
[2020-03-23] MEDS: Docusate Sodium 100 MG Cap PO PRN ×2 (09:07→20:20)
[2020-03-23] MEDS: Prenatal Multivitamin with Calcium/Folic Acid/Iron Tab PO SCH (09:08)
[2020-03-23] MEDS: Ibuprofen 800 MG Tab PO PRN (16:19)
[2020-03-23] MEDS: Acetaminophen 325 MG Tab PO PRN (20:20)
[2020-03-24] MEDS: Ibuprofen 800 MG Tab PO PRN ×3 (00:04→19:17)
[2020-03-24] MEDS: Acetaminophen 325 MG Tab PO PRN ×2 (00:04→19:18)
--- NOTE | 2020-03-24 08:17 | PCM.PNPP ---
- General Info Date of Service: 03/24/20 Subjective Update: Patient is doing well. Ambulating without difficulty. No dizziness, lightheadedness, fever or chills. Tolerating a general diet. Voiding and passing gas--no bowel movement yet. Vaginal bleeding has been stable. Minimal pelvic cramping. Bottle feeding. No concerns per patient or per nursing staff. - Review of Systems General: Reports: No Symptoms HEENT: Reports: No Symptoms Pulmonary: Reports: No Symptoms Cardiovascular: Reports: No Symptoms Gastrointestinal: Reports: No Symptoms Genitourinary: Reports: No Symptoms 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: Reports: No Symptoms Skin: Reports: No Symptoms Neurological: Reports: No Symptoms - General Info Date of Service: 03/24/20 - Patient Data Vital Signs - Most Recent: Last Vital Signs Temp 36.9 C 03/23/20 20:00 Pulse 82 03/23/20 20:00 Resp 18 03/23/20 20:00 BP 104/68 03/23/20 20:00 Pulse Ox 100 03/23/20 20:00 Weight - Most Recent: 89.358 kg Lab Results - Last 24 Hours: Laboratory Results - last 24 hr 03/24/20 Range/Units 05:45 WBC 9.5 (5.0-10.0) 10^3/uL RBC 3.77 L (4.2-5.4) 10^6/uL Hgb 9.7 L (12.0-16.0) g/dL Hct 30.7 L (37.0-47.0) % MCV 81.4 (80-100) fL MCH 25.7 L (27.0-34.0) pg MCHC 31.6 L (33.0-35.0) g/dL Plt Count 237 (150-450) 10^3/uL Med Orders - Current: Current Medications Acetaminophen (Tylenol) 650 mg PO Q4H PRN PRN Reason: Pain (Mild 1-3) and fever Last Admin: 03/24/20 00:04 Dose: 650 mg Documented by: Benzocaine/Menthol (Dermoplast Pain Relief [place]) 0 gm TOP Q4H PRN PRN Reason: Perineal comfort measures Carboprost Tromethamine (Hemabate Ds) 250 mcg IM ASDIRECTED PRN PRN Reason: HEMORRHAGE Docusate Sodium (Colace) 100 mg PO BID PRN PRN Reason: Constipation Last Admin: 03/23/20 20:20 Dose: 100 mg Documented by: Ferrous Sulfate (Ferrous Sulfate) 325 mg PO WITHBREAKFAST [facility] Last Admin: 03/23/20 09:07 Dose: 325 mg Documented by: Lactated Ringer's (Ringers, Lactated) 1,000 mls @ 125 mls/hr IV ASDIRECTED [facility] Last Admin: 03/22/20 21:35 Dose: 125 mls/hr Documented by: Lactated Ringer's (Ringers, Lactated) 1,000 mls @ 125 mls/hr IV ASDIRECTED [facility] Last Admin: 03/23/20 00:17 Dose: 125 mls/hr Documented by: Tranexamic Acid 1,000 mg/ (Sodium Chloride) 110 mls @ 660 mls/hr IV ONETIME PRN PRN Reason: Bleeding Oxytocin/Sodium Chloride (Pitocin In Ns 30 Unit/500 Ml) 30 unit in 500 mls @ 2 mls/hr IV TITRATE [facility]; Protocol Last Titration: 03/23/20 06:15 Dose: Infused Documented by: Ibuprofen (Motrin) 800 mg PO Q8H PRN PRN Reason: Mild Pain or Fever Last Admin: 03/24/20 00:04 Dose: 800 mg Documented by: Lidocaine HCl (Xylocaine-Mpf 1%) 30 ml INJECT ASDIRECTED PRN PRN Reason: Perineal Repair Methylergonovine Maleate (Methergine) 0.2 mg IM ASDIRECTED PRN PRN Reason: Hemorrhage Misoprostol (Cytotec) 800 mcg RECTAL ASDIRECTED PRN PRN Reason: Hemorrhage Oxytocin (Pitocin) 10 unit IM ONETIME PRN PRN Reason: Bleeding Prenat Multivit/[place]/Iron/Folic Ac ( Plus Iron) 1 each PO DAILY [facility] Last Admin: 03/23/20 09:08 Dose: 1 each Documented by: Simethicone (Simethicone) 80 mg PO Q4H PRN PRN Reason: Gas Sodium Chloride (Saline Flush) 10 ml FLUSH ASDIRECTED PRN PRN Reason: Keep Vein Open Witch Eunice (Medi-Pads) 1 each TOP Q4HR PRN PRN Reason: Perineal Comfort Measure Discontinued Medications Butorphanol Tartrate (Stadol) 0.5 mg IVPUSH Q3H PRN PRN Reason: Pain Butorphanol Tartrate (Stadol) 1 mg IVPUSH Q3H PRN PRN Reason: Pain Epinephrine HCl (Adrenalin) Confirm Administered Dose 1 mg .ROUTE .STK-MED ONE Stop: 03/23/20 00:08 Last Admin: 03/23/20 00:41 Dose: Not Given Documented by: Fentanyl (Sublimaze) 100 mcg IVPUSH Q1H PRN PRN Reason: Pain (moderate 4-6) Fentanyl (Sublimaze) Confirm Administered Dose 100 mcg .ROUTE .STK-MED ONE Stop: 03/23/20 00:08 Last Admin: 03/23/20 00:41 Dose: Not Given Documented by: Penicillin G Potassium 5 (millunits/ Sodium Chloride) 100 mls @ 200 mls/hr IV ONETIME ONE Stop: 03/22/20 21:19 Last Admin: 03/22/20 21:35 Dose: 200 mls/hr Documented by: Lactated Ringer's (Ringers, Lactated) 1,000 mls @ 999 mls/hr IV BOLUS ONE Stop: 03/22/20 23:04 Last Admin: 03/23/20 04:47 Dose: Not Given Documented by: Penicillin G Potassium 3 (millunits/ Sodium Chloride) 100 mls @ 200 mls/hr IV Q4HR [facility] Last Admin: 03/23/20 01:40 Dose: 200 mls/hr Documented by: Ondansetron HCl (Zofran) 4 mg IVPUSH Q4H PRN PRN Reason: Nausea/Vomiting Last Admin: 03/23/20 00:02 Dose: 4 mg Documented by: Sodium Bicarbonate (Sodium Bicarbonate 4.2%) Confirm Administered Dose 2.5 meq .ROUTE .STK-MED ONE Stop: 03/23/20 00:08 Last Admin: 03/23/20 00:41 Dose: Not Given Documented by: Sufentanil Citrate (Sufenta) Confirm Administered Dose 50 mcg .ROUTE .STK-MED ONE Stop: 03/23/20 00:08 Last Admin: 03/23/20 00:41 Dose: Not Given Documented by: - Interaction Infant Disposition, : in Room with Family Interaction: Holding Infant Infant Feeding: Bottle Fed Support Person: Significant Other - Recovery Exam Fundal Tone: Firm Fundal Level: 1 Fingerbreadths Below Umbilicus Fundal Placement: Midline Lochia Amount: Scant Lochia Color: Rubra/Red Perineum Description: Intact, Minimal Bruising/Swelling Episiotomy/Laceration: None Bladder Status: Voiding - Exam General: Alert, Oriented Lungs: Clear to Auscultation, Normal Respiratory Effort Cardiovascular: Regular Rate, Regular Rhythm, No Murmurs GI/Abdominal Exam: Soft, Non-Tender Extremities: Normal Inspection, Pedal Edema (Trace bilaterally) Skin: Warm, Dry, Intact - Problem List & Annotations (1) care in third trimester SNOMED Code(s): 838340464, 76367855, 34385822, 196698122, 534868173 Code(s): Z34.93 - ENCNTR FOR SUPRVSN OF NORMAL PREG, UNSP, THIRD TRIMESTER Status: Acute (2) Chlamydia infection affecting SNOMED Code(s): 9570434277304 Code(s): O98.819 - OTH MATERNAL INFEC/PARASTC DISEASES COMP PREG, UNSP TRI; A74.9 - CHLAMYDIAL INFECTION, UNSPECIFIED Status: Acute (3) Anemia affecting in third trimester SNOMED Code(s): 58090168, 01393266 Code(s): O99.013 - ANEMIA COMPLICATING , THIRD TRIMESTER Status: Acute (4) (normal spontaneous vaginal delivery) SNOMED Code(s): 30435366, 062047605 Code(s): O80 - ENCOUNTER FOR FULL-TERM UNCOMPLICATED DELIVERY Status: Acute Priority: High - Problem List Review Problem List Initiated/Reviewed/Updated: Yes - My Orders Last 24 Hours: My Active Orders 03/23/20 08:00 Ferrous Sulfate 325 mg PO WITHBREAKFAST 03/23/20 09:00 Vit with Ca/FA/Iron [ Plus Iron] 1 each PO DAILY 03/24/20 05:45 RPR (SYPHILIS SERO) W/ RFLX [REF] Routine - Assessment Assessment:: 19-year-old, now , PPD#1 s/p at 37w1d - Plan Plan:: 1. Initiate routine cares 2. Bottle feeding 3. Mild anemia noted--start oral iron. 4. Syphilis antibodies drawn and are pending 5. Anticipate discharge 03/25/2020 Wendy Alberto MD
[2020-03-24] MEDS: Docusate Sodium 100 MG Cap PO PRN ×2 (08:22→19:17)
[2020-03-24] MEDS: Prenatal Multivitamin with Calcium/Folic Acid/Iron Tab PO SCH (08:22)
[2020-03-24] MEDS: Ferrous Sulfate 325 MG Tab PO SCH (08:23)
[2020-03-25] MEDS: Prenatal Multivitamin with Calcium/Folic Acid/Iron Tab PO SCH (08:20)
[2020-03-25] MEDS: Ibuprofen 800 MG Tab PO PRN (08:20)
[2020-03-25] MEDS: Ferrous Sulfate 325 MG Tab PO SCH (08:20)
[2020-03-25] MEDS: Docusate Sodium 100 MG Cap PO PRN (08:20)
[2020-03-25 08:37] VITALS: BP 107/71; PULSE 66
--- NOTE | 2020-03-25 10:41 | PCM.DCSUM1 ---
Discharge Summary - Hospital Course Free Text/Narrative:: 19-year-old PPD#2 s/p at 37w2d Diagnosis: Stroke: No - Discharge Data Discharge Date: 03/25/20 Discharge Disposition: Home, Self-Care 01 Condition: Good - Referral to Home Health Primary Care Physician: Milly Fair MD - Discharge Diagnosis/Problem(s) (1) care in third trimester SNOMED Code(s): 586043858, 82521143, 93893495, 088768261, 839968020 ICD Code: Z34.93 - ENCNTR FOR SUPRVSN OF NORMAL PREG, UNSP, THIRD TRIMESTER Status: Acute (2) Chlamydia infection affecting SNOMED Code(s): 8937108767442 ICD Code: O98.819 - OTH MATERNAL INFEC/PARASTC DISEASES COMP PREG, UNSP TRI; A74.9 - CHLAMYDIAL INFECTION, UNSPECIFIED Status: Acute (3) Anemia affecting in third trimester SNOMED Code(s): 86655318, 64486834 ICD Code: O99.013 - ANEMIA COMPLICATING , THIRD TRIMESTER Status: Acute (4) (normal spontaneous vaginal delivery) SNOMED Code(s): 04914431, 074508944 ICD Code: O80 - ENCOUNTER FOR FULL-TERM UNCOMPLICATED DELIVERY Status: Acute Priority: High - Patient Summary/Data Operative Procedure(s) Performed: None Complications: None Consults: None Labs Pending at D/C: Syphilis antibodies Recommended Follow-up Testing/Procedures: None Planned Operative Procedure(s) after DC: None Hospital Course: Please see subjective section - Patient Instructions Diet: Usual Diet as Tolerated Activity: As Tolerated, No Lifting Over 20 Pounds Driving: May Drive Today Showering/Bathing: May Shower Notify Provider of: Fever, Increased Pain, Drainage, Nausea and/or Vomiting - Discharge Plan *PRESCRIPTION DRUG MONITORING PROGRAM REVIEWED*: Not Applicable *COPY OF PRESCRIPTION DRUG MONITORING REPORT IN PATIENT SONU: Not Applicable Home Medications: Home Meds Prenat 115/Iron Fum/Folic/Dss [ 19 Tablet] 1 tab PO DAILY 08/05/19 [History] Acetaminophen [Tylenol] 650 mg PO Q4H PRN tablet 03/25/20 [Rx] Docusate Sodium [Colace] 100 mg PO BID PRN cap 03/25/20 [Rx] Ferrous Sulfate 325 mg PO WITHBREAKFAST tablet 03/25/20 [Rx] Ibuprofen [Motrin] 800 mg PO Q8H PRN tablet 03/25/20 [Rx] Patient Handouts: Anemia, Baby Blues, Care After Vaginal Delivery Referrals: Wendy Alberto MD [Physician] - (6-8 weeks for routien care) - Discharge Summary/Plan Comment DC Time >30 min.: No Discharge Summary/Plan Comment: Discharge home today. Follow-up with Dr. Alberto in 6-8 weeks for routine care. Routine discharge information to be provided by nursing staff. Patient denies any concerns or questions. - General Info Date of Service: 03/25/20 Subjective Update: Patient is doing well. Ambulating without difficulty. No dizziness, lightheadedness, fever or chills. Tolerating a general diet. Voiding and passing gas. Did have a bowel movement without trouble. Vaginal bleeding has been decreasing. Bottle feeding. No concerns per patient or per nursing staff. Functional Status: Reports: Pain Controlled, Tolerating Diet, Ambulating, Urinating. Denies: New Symptoms - Review of Systems General: Reports: No Symptoms HEENT: Reports: No Symptoms Pulmonary: Reports: No Symptoms Cardiovascular: Reports: No Symptoms Gastrointestinal: Reports: No Symptoms Genitourinary: Reports: No Symptoms 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: Reports: No Symptoms Skin: Reports: No Symptoms Neurological: Reports: No Symptoms - Patient Data Vitals - Most Recent: Last Vital Signs Temp 36.8 C 03/25/20 08:00 Pulse 66 03/25/20 08:00 Resp 16 03/25/20 08:00 BP 107/71 03/25/20 08:00 Pulse Ox 99 03/24/20 20:00 Weight - Most Recent: 89.358 kg Med Orders - Current: Current Medications Acetaminophen (Tylenol) 650 mg PO Q4H PRN PRN Reason: Pain (Mild 1-3) and fever Last Admin: 03/24/20 19:18 Dose: 650 mg Documented by: Benzocaine/Menthol (Dermoplast Pain Relief [place]) 0 gm TOP Q4H PRN PRN Reason: Perineal comfort measures Carboprost Tromethamine (Hemabate Ds) 250 mcg IM ASDIRECTED PRN PRN Reason: HEMORRHAGE Docusate Sodium (Colace) 100 mg PO BID PRN PRN Reason: Constipation Last Admin: 03/25/20 08:20 Dose: 100 mg Documented by: Ferrous Sulfate (Ferrous Sulfate) 325 mg PO WITHBREAKFAST [facility] Last Admin: 03/25/20 08:20 Dose: 325 mg Documented by: Lactated Ringer's (Ringers, Lactated) 1,000 mls @ 125 mls/hr IV ASDIRECTED [facility] Last Admin: 03/22/20 21:35 Dose: 125 mls/hr Documented by: Lactated Ringer's (Ringers, Lactated) 1,000 mls @ 125 mls/hr IV ASDIRECTED [facility] Last Admin: 03/23/20 00:17 Dose: 125 mls/hr Documented by: Tranexamic Acid 1,000 mg/ (Sodium Chloride) 110 mls @ 660 mls/hr IV ONETIME PRN PRN Reason: Bleeding Oxytocin/Sodium Chloride (Pitocin In Ns 30 Unit/500 Ml) 30 unit in 500 mls @ 2 mls/hr IV TITRATE [facility]; Protocol Last Titration: 03/23/20 06:15 Dose: Infused Documented by: Ibuprofen (Motrin) 800 mg PO Q8H PRN PRN Reason: Mild Pain or Fever Last Admin: 03/25/20 08:20 Dose: 800 mg Documented by: Lidocaine HCl (Xylocaine-Mpf 1%) 30 ml INJECT ASDIRECTED PRN PRN Reason: Perineal Repair Methylergonovine Maleate (Methergine) 0.2 mg IM ASDIRECTED PRN PRN Reason: Hemorrhage Misoprostol (Cytotec) 800 mcg RECTAL ASDIRECTED PRN PRN Reason: Hemorrhage Oxytocin (Pitocin) 10 unit IM ONETIME PRN PRN Reason: Bleeding Prenat Multivit/[place]/Iron/Folic Ac ( Plus Iron) 1 each PO DAILY [facility] Last Admin: 03/25/20 08:20 Dose: 1 each Documented by: Simethicone (Simethicone) 80 mg PO Q4H PRN PRN Reason: Gas Sodium Chloride (Saline Flush) 10 ml FLUSH ASDIRECTED PRN PRN Reason: Keep Vein Open Witch Eunice (Medi-Pads) 1 each TOP Q4HR PRN PRN Reason: Perineal Comfort Measure Discontinued Medications Butorphanol Tartrate (Stadol) 0.5 mg IVPUSH Q3H PRN PRN Reason: Pain Butorphanol Tartrate (Stadol) 1 mg IVPUSH Q3H PRN PRN Reason: Pain Epinephrine HCl (Adrenalin) Confirm Administered Dose 1 mg .ROUTE .STK-MED ONE Stop: 03/23/20 00:08 Last Admin: 03/23/20 00:41 Dose: Not Given Documented by: Fentanyl (Sublimaze) 100 mcg IVPUSH Q1H PRN PRN Reason: Pain (moderate 4-6) Fentanyl (Sublimaze) Confirm Administered Dose 100 mcg .ROUTE .STK-MED ONE Stop: 03/23/20 00:08 Last Admin: 03/23/20 00:41 Dose: Not Given Documented by: Penicillin G Potassium 5 (millunits/ Sodium Chloride) 100 mls @ 200 mls/hr IV ONETIME ONE Stop: 03/22/20 21:19 Last Admin: 03/22/20 21:35 Dose: 200 mls/hr Documented by: Lactated Ringer's (Ringers, Lactated) 1,000 mls @ 999 mls/hr IV BOLUS ONE Stop: 03/22/20 23:04 Last Admin: 03/23/20 04:47 Dose: Not Given Documented by: Penicillin G Potassium 3 (millunits/ Sodium Chloride) 100 mls @ 200 mls/hr IV Q4HR [facility] Last Admin: 03/23/20 01:40 Dose: 200 mls/hr Documented by: Ondansetron HCl (Zofran) 4 mg IVPUSH Q4H PRN PRN Reason: Nausea/Vomiting Last Admin: 03/23/20 00:02 Dose: 4 mg Documented by: Sodium Bicarbonate (Sodium Bicarbonate 4.2%) Confirm Administered Dose 2.5 meq .ROUTE .STK-MED ONE Stop: 03/23/20 00:08 Last Admin: 03/23/20 00:41 Dose: Not Given Documented by: Sufentanil Citrate (Sufenta) Confirm Administered Dose 50 mcg .ROUTE .STK-MED ONE Stop: 03/23/20 00:08 Last Admin: 03/23/20 00:41 Dose: Not Given Documented by: - Exam General: Reports: Alert, Oriented Lungs: Reports: Clear to Auscultation, Normal Respiratory Effort Cardiovascular: Reports: Regular Rate, Regular Rhythm, No Murmurs GI/Abdominal Exam: Soft, Non-Tender Extremities: Normal Inspection, No Pedal Edema Skin: Reports: Warm, Dry, Intact
== END 2020-03-25 13:00 | disposition home or self-care (01) | DRG 807 ==
LOC: DL.OB 20:08 → OBSVTOIN 03-23 03:10 → DL.MS 03-23 09:45
PROVIDERS: ADMIT Obstetrics & Gynecology; ATTEND Family Medicine
PROC: 10E0XZZ Delivery of Products of Conception, External Approach (ICD-10-PCS; principal; 2020-03-22)
PROC: 3E0R3BZ Introduction of Anesthetic Agent into Spinal Canal, Percutaneous Approach (ICD-10-PCS; 2020-03-22)
DX: O99.02 Anemia complicating childbirth (principal); Z37.0 Single live birth; D64.9 Anemia, unspecified; Z3A.37 37 weeks gestation of pregnancy; O24.420 Gestational diabetes mellitus in childbirth, diet controlled; O77.0 Labor and delivery complicated by meconium in amniotic fluid; Z20.828 Contact with and (suspected) exposure to other viral communicable diseases
CPT/HCPCS: 01967; 36415; 59409; 80305-QW; 85027; 86592; A9270-GY; J0171; J2405; J2540; J2590; J3010; J7050; J7120; U0002

== ENCOUNTER 2021-05-25 00:27 | Emergency (ER) | payer MEDICAID ==
[2021-05-25 01:34] VITALS: BP 103/79; PULSE 53
--- NOTE | 2021-05-25 02:20 | CR ---
PROCEDURE INFORMATION: Exam: XR Chest Exam date and time: 05/25/2021 2:03 AM Age: 20 years old Clinical indication: Other: Chest pain TECHNIQUE: Imaging protocol: XR of the chest. Views: 1 view. COMPARISON: No relevant prior studies available. FINDINGS: Tubes, catheters and devices: Cardiac lead wires are present. Lungs: Unremarkable. No consolidation. Pleural spaces: Unremarkable. No pleural effusion. No pneumothorax. Heart/Mediastinum: Unremarkable. No cardiomegaly. Bones/joints: Unremarkable. IMPRESSION: Unremarkable examination.
--- NOTE | 2021-05-25 02:31 | EDM.PDOC ---
ED HPI GENERAL MEDICAL PROBLEM - General Chief Complaint: Chest Pain Stated Complaint: CHEST PAIN Time Seen by Provider: 05/25/21 02:26 Source of Information: Reports: Patient History Limitations: Reports: No Limitations - History of Present Illness INITIAL COMMENTS - FREE TEXT/NARRATIVE: 20 y/o F c/o chest pain center upper chest on and off for the last year. The pain is intermittent, sharp in nature, non radiating, lasting 5min at a time. Nothing seems to bring on the cp or catarino it. Has had some constipation over the last few weeks as well as some nausea. LMP May 03. No cardiac hx. No family hx of sudden cardiac or arrhythmias. Denies sob, abd pn, pelvic pn, trauma, shoulder pn, neck pn, jaw pn, man, vision prob, ext pain, diff voiding, anxiety, drugs. admits to occasional alcohol and marijuana u Left Chest Pain Score (Numeric/FACES): 6 - Related Data Allergies Allergy/AdvReac Type Severity Reaction Status Date / Time No Known Allergies Allergy Verified 05/25/21 01:35 Home Meds: Home Meds . [No Known Home Meds] 05/25/21 [History] Past Medical History - Past Health History Medical/Surgical History: Denies Medical/Surgical History HEENT History: Reports: None Cardiovascular History: Reports: None Respiratory History: Reports: None Gastrointestinal History: Reports: Gastritis Genitourinary History: Reports: None, STD, Other (See Below) Other Genitourinary History: chlamydia treated TELEMETRY RN History: Reports: Other TELEMETRY RN History: 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 History: Reports: None Neurological History: Reports: None Psychiatric History: Reports: None Other Psychiatric History: self harm/cutting Endocrine/Metabolic History: Reports: Diabetes, Gestational Hematologic History: Reports: None Immunologic History: Reports: None Oncologic (Cancer) History: Reports: None Dermatologic History: Reports: None - Infectious Disease History Infectious Disease History: Reports: None - Past Surgical History Head Surgeries/Procedures: Reports: None HEENT Surgical History: Reports: None Cardiovascular Surgical History: Reports: None Respiratory Surgical History: Reports: None GI Surgical History: Reports: None Female Surgical History: Reports: None Endocrine Surgical History: Reports: None Neurological Surgical History: Reports: None 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 Surgical History: Reports: None Oncologic Surgical History: Reports: None Dermatological Surgical History: Reports: None Social & Family History - Family History Family Medical History: No Pertinent Family History HEENT: Reports: None Cardiac: Reports: Hypertension Respiratory: Reports: None GI: Reports: None : Reports: None OBGYN: Reports: None 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: Reports: None Neurological: Reports: None Psychiatric: Reports: None Endocrine/Metabolic: Reports: Diabetes, type II Hematologic: Reports: None Immunologic: Reports: None Dermatologic: Reports: None Oncologic: Reports: None - Tobacco Use Tobacco Use Status *Q: Never Tobacco User - Caffeine Use Caffeine Use: Reports: Coffee - Recreational Drug Use Recreational Drug Use: No - Living Situation & Occupation Living situation: Reports: with Family ED ROS GENERAL - Review of Systems Review Of Systems: Comprehensive ROS is negative, except as noted in HPI. ED EXAM, GENERAL - Physical Exam Exam: See Below Exam Limited By: No Limitations General Appearance: Alert, WD/WN, No Apparent Distress Eye Exam: Bilateral Eye: PERRL Ears: Normal External Exam, Normal Canal, Hearing Grossly Normal, Normal TMs Nose: Normal Inspection, Normal Mucosa, No Blood Throat/Mouth: Normal Inspection, Normal Lips, Normal Teeth, Normal Gums, Normal Oropharynx, Normal Voice, No Airway Compromise Head: Atraumatic, Normocephalic Neck: Normal Inspection, Supple, Non-Tender, Full Range of Motion Respiratory/Chest: No Respiratory Distress, Lungs Clear, Normal Breath Sounds, No Accessory Muscle Use, Chest Non-Tender Cardiovascular: Normal Peripheral Pulses, Regular Rate, Rhythm, No Edema, No Gallop, No JVD, No Murmur, No Rub GI/Abdominal: Normal Bowel Sounds, Soft, Non-Tender, No Organomegaly (Female) Exam: Deferred Rectal (Female) Exam: Deferred Back Exam: Normal Inspection, Full Range of Motion Extremities: Normal Inspection, Normal Range of Motion, Non-Tender, Normal Capillary Refill, No Pedal Edema Neurological: Alert, Oriented, CN II-XII Intact, Normal Cognition, Normal Gait, Normal Reflexes, No Motor/Sensory Deficits Psychiatric: Normal Affect, Normal Mood Skin Exam: Warm, Dry, Intact #1 Interpretation EKG Date: 05/25/21 Time: 01:52 Rhythm: Other (sinus beverley) [place]: Normal P-Wave: Present QRS: Normal ST-T: Normal QT: Normal Course - Vital Signs Last Recorded V/S: Last Vital Signs Temp 97.4 F 11/21/21 01:33 Pulse 53 L 05/25/21 01:33 Resp 16 05/25/21 01:33 BP 103/79 05/25/21 01:33 Pulse Ox 98 05/25/21 01:33 - Orders/Labs/Meds Orders: Active Orders 24 hr Category Date Time Status CULTURE URINE [RM] Stat Lab 05/25/21 02:56 Received Labs: Laboratory Tests 05/25/21 05/25/21 05/25/21 Range/Units 02:25 02:25 02:56 WBC 10.7 H (5.0-10.0) 10^3/uL RBC 4.00 L (4.2-5.4) 10^6/uL Hgb 11.6 L D (12.0-16.0) g/dL Hct 35.1 L (37.0-47.0) % MCV 87.8 D (80-100) fL MCH 29.0 (27.0-34.0) pg MCHC 33.0 (33.0-35.0) g/dL Plt Count 255 (150-450) 10^3/uL Neut % (Auto) 63.8 (42.2-75.2) % Lymph % (Auto) 25.5 (20.5-50.1) % [place] % (Auto) 8.6 H (2-8) % Eos % (Auto) 1.9 (1.0-3.0) % Baso % (Auto) 0.2 (0.0-1.0) % Sodium 138 (136-145) mmol/L Potassium 3.6 (3.5-5.1) mmol/L Chloride 104 (98-107) mmol/L Carbon Dioxide 26 (21-32) mmol/L Anion Gap 11.6 (7-13) mEq/L BUN 11 (7-18) mg/dL Creatinine 0.65 (0.55-1.02) mg/dL Est Cr Clr Drug Dosing TNP Estimated GFR (MDRD) > 60 BUN/Creatinine Ratio 16.9 (No establ ref range) Glucose 96 (70-99) mg/dL Calcium 8.7 (8.5-10.1) mg/dL Phosphorus 4.4 (2.6-4.7) mg/dL Magnesium 1.8 (1.8-2.4) mg/dL Total Bilirubin 0.3 (0.2-1.0) mg/dL AST 27 (15-37) U/L ALT 64 H (14-59) U/L Alkaline Phosphatase 104 (46-116) U/L Troponin I High Sens < 4 (<=51) pg/mL C-Reactive Protein < 0.2 (0.0-0.9) mg/dL Total Protein 7.1 (6.4-8.2) g/dL Albumin 3.5 (3.4-5.0) g/dL Globulin 3.6 Albumin/Globulin Ratio 1.0 Amylase 31 (25-115) U/L Lipase 99 (73-393) U/L Free T4 0.89 (0.76-1.46) ng/dL TSH, Ultra Sensitive 1.35 (0.36-3.74) uIU/mL Urine Color Yellow (YELLOW) Urine Appearance Slightly cloudy (CLEAR) Urine pH 6.0 (5.0-9.0) Ur Specific [place] >= 1.030 (1.005-1.030) Urine Protein Negative (NEGATIVE) Urine Glucose (UA) Negative (NEGATIVE) Urine Ketones Negative (NEGATIVE) Urine Occult Blood Negative (NEGATIVE) Urine Nitrite Negative (NEGATIVE) Urine Bilirubin Negative (NEGATIVE) Urine Urobilinogen 0.2 (0.2-1.0) mg/dL Ur Leukocyte Esterase Small H (NEGATIVE) Urine RBC Not seen (0-5) /HPF Urine WBC 30-40 H (0-5/HPF) /HPF Ur Epithelial Cells Many H (NOT SEEN) /HPF Urine Bacteria Many H (0-FEW/HPF) /HPF Urine HCG, Qual Urine Opiates Screen (NEGATIVE) Ur Oxycodone Screen (NEGATIVE) Urine Methadone Screen (NEGATIVE) Ur Barbiturates Screen (NEGATIVE) U Tricyclic Antidepress (NEGATIVE) Ur Phencyclidine Scrn (NEGATIVE) Ur Amphetamine Screen (NEGATIVE) U Methamphetamines Scrn (NEGATIVE) Urine MDMA Screen (NEGATIVE) U Benzodiazepines Scrn (NEGATIVE) Urine Cocaine Screen (NEGATIVE) U Marijuana (THC) Screen (NEGATIVE) 05/25/21 05/25/21 Range/Units 02:56 02:56 WBC (5.0-10.0) 10^3/uL RBC (4.2-5.4) 10^6/uL Hgb (12.0-16.0) g/dL Hct (37.0-47.0) % MCV (80-100) fL MCH (27.0-34.0) pg MCHC (33.0-35.0) g/dL Plt Count (150-450) 10^3/uL Neut % (Auto) (42.2-75.2) % Lymph % (Auto) (20.5-50.1) % [place] % (Auto) (2-8) % Eos % (Auto) (1.0-3.0) % Baso % (Auto) (0.0-1.0) % Sodium (136-145) mmol/L Potassium (3.5-5.1) mmol/L Chloride (98-107) mmol/L Carbon Dioxide (21-32) mmol/L Anion Gap (7-13) mEq/L BUN (7-18) mg/dL Creatinine (0.55-1.02) mg/dL Est Cr Clr Drug Dosing Estimated GFR (MDRD) BUN/Creatinine Ratio (No establ ref range) Glucose (70-99) mg/dL Calcium (8.5-10.1) mg/dL Phosphorus (2.6-4.7) mg/dL Magnesium (1.8-2.4) mg/dL Total Bilirubin (0.2-1.0) mg/dL AST (15-37) U/L ALT (14-59) U/L Alkaline Phosphatase (46-116) U/L Troponin I High Sens (<=51) pg/mL C-Reactive Protein (0.0-0.9) mg/dL Total Protein (6.4-8.2) g/dL Albumin (3.4-5.0) g/dL Globulin Albumin/Globulin Ratio Amylase (25-115) U/L Lipase (73-393) U/L Free T4 (0.76-1.46) ng/dL TSH, Ultra Sensitive (0.36-3.74) uIU/mL Urine Color (YELLOW) Urine Appearance (CLEAR) Urine pH (5.0-9.0) Ur Specific [place] (1.005-1.030) Urine Protein (NEGATIVE) Urine Glucose (UA) (NEGATIVE) Urine Ketones (NEGATIVE) Urine Occult Blood (NEGATIVE) Urine Nitrite (NEGATIVE) Urine Bilirubin (NEGATIVE) Urine Urobilinogen (0.2-1.0) mg/dL Ur Leukocyte Esterase (NEGATIVE) Urine RBC (0-5) /HPF Urine WBC (0-5/HPF) /HPF Ur Epithelial Cells (NOT SEEN) /HPF Urine Bacteria (0-FEW/HPF) /HPF Urine HCG, Qual Negative Urine Opiates Screen Negative (NEGATIVE) Ur Oxycodone Screen Negative (NEGATIVE) Urine Methadone Screen Negative (NEGATIVE) Ur Barbiturates Screen Negative (NEGATIVE) U Tricyclic Antidepress Negative (NEGATIVE) Ur Phencyclidine Scrn Negative (NEGATIVE) Ur Amphetamine Screen Negative (NEGATIVE) U Methamphetamines Scrn Negative (NEGATIVE) Urine MDMA Screen Negative (NEGATIVE) U Benzodiazepines Scrn Negative (NEGATIVE) Urine Cocaine Screen Negative (NEGATIVE) U Marijuana (THC) Screen Positive H (NEGATIVE) Meds: Medications Discontinued Medications Generic Name Dose Route Start Last Admin Trade Name Freq PRN Reason Stop Dose Admin Cephalexin 500 mg 05/25/21 03:22 05/25/21 03:33 Cephalexin 500 Mg Cap PO 05/25/21 03:23 500 mg ONETIME ONE Administration - Re-Assessments/Exams Free Text/Narrative Re-Assessment/Exam: 05/25/21 03:18 The patient has a UTI, her work up is otherwise unremarkable. I will provide her with an RX for keflex and send her home. 05/25/21 03:24 Departure - Departure Time of Disposition: 03:25 Disposition: Home, Self-Care 01 Condition: Good Clinical Impression: UTI (urinary tract infection) Qualifiers: Urinary tract infection type: site unspecified Hematuria presence: without hematuria Qualified Code(s): N39.0 - Urinary tract infection, site not specified Instructions: Urinary Tract Infection, Adult Forms: ED Department Discharge Additional Instructions: RX: Kelfex, take all of your antibiotics until gone. If any new symptoms or concerns develop contact your primary care facility or return to the ER. Sepsis Event Note (ED) - Evaluation Sepsis Screening Result: No Definite Risk - Focused Exam Vital Signs: Vital Signs Temp Pulse Resp BP Pulse Ox 05/25/21 01:33 97.4 F 53 L 16 103/79 98 - My Orders Last 24 Hours: My Active Orders 05/25/21 02:56 CULTURE URINE [RM] Stat - Assessment/Plan Last 24 Hours: My Active Orders 05/25/21 02:56 CULTURE URINE [RM] Stat
[2021-05-25 03:00] LABS: ANION GAP 11.6 mEq/L (7-13); CHLORIDE,CL 104 mmol/L (98-107); SODIUM,NA 138 mmol/L (136-145)
[2021-05-25 03:11] LABS: BARBITURATES,URINE NEGATIVE (NEGATIVE); BENZODIAZEPINE,URINE NEGATIVE (NEGATIVE); MDMA (ECSTASY), URINE NEGATIVE (NEGATIVE); METHADONE,URINE NEGATIVE (NEGATIVE); METHAMPHETAMINES,URINE NEGATIVE (NEGATIVE); OPIATES,URINE NEGATIVE (NEGATIVE); TCA,URINE NEGATIVE (NEGATIVE)
[2021-05-25 03:12] LABS: AMPHETAMINES,URINE NEGATIVE (NEGATIVE); OXYCODONE,URINE NEGATIVE (NEGATIVE); PHENCYCLIDINE,URINE NEGATIVE (NEGATIVE)
[2021-05-25] MEDS ORDERED: Cephalexin 500 MG Cap PO ONE (03:22)
== END 2021-05-25 03:33 | disposition home or self-care (01) ==
LOC: DL.ED 00:27
DX: N39.0 Urinary tract infection, site not specified (principal); R00.1 Bradycardia, unspecified
CPT/HCPCS: 36415; 71045; 80053; 80305-QW; 81001; 81025; 82150; 83690; 83735; 84100; 84439; 84443; 84484; 85025; 86140; 87086; 87088; 87186; 93005; 99285-25; A9270-GY

== ENCOUNTER 2021-05-30 05:35 | Emergency (ER) | payer MEDICAID ==
[2021-05-30 06:46] VITALS: BP 104/70; PULSE 64
[2021-05-30 07:03] LABS: ANION GAP 15.1 mEq/L (7-13); CHLORIDE,CL 104 mmol/L (98-107); SODIUM,NA 136 mmol/L (136-145)
--- NOTE | 2021-05-30 07:20 | EDM.PDOC ---
ED HPI GENERAL MEDICAL PROBLEM - General Chief Complaint: Abdominal Pain Stated Complaint: STOMACH PAIN Time Seen by Provider: 05/30/21 07:18 Source of Information: Reports: Patient, RN, RN Notes Reviewed History Limitations: Reports: No Limitations - History of Present Illness INITIAL COMMENTS - FREE TEXT/NARRATIVE: Chago is a 20 y/o female who presents to the ED via personal vehicle with complaints of abdominal pain. The patient reports her pain began last night and has waxed and waned in severity over that time; she is not currently experiencing pain. She characterizes the pain as sharp, originating in her bilateral upper abdomen and radiating into her left flank. When the pain is at it's peak, she experiences nausea which dissipates with the pain. The denies fever, shaking chills, dyspepsia, vomiting, dysuria, or hematuria. Her last bowel movement was two days ago, which is normal for her bowel pattern. abdomen Pain Score (Numeric/FACES): 10 - Related Data Allergies Allergy/AdvReac Type Severity Reaction Status Date / Time No Known Allergies Allergy Verified 05/30/21 06:46 Home Meds: Home Meds . [No Known Home Meds] 05/25/21 [History] Past Medical History - Past Health History Medical/Surgical History: Denies Medical/Surgical History HEENT History: Reports: None Cardiovascular History: Reports: None Respiratory History: Reports: None Gastrointestinal History: Reports: Gastritis Genitourinary History: Reports: STD, Other (See Below) Other Genitourinary History: chlamydia treated ACCOUNTS CLERK History: Reports: Other ACCOUNTS CLERK History: 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 History: Reports: None Neurological History: Reports: None Psychiatric History: Reports: None Other Psychiatric History: self harm/cutting Endocrine/Metabolic History: Reports: Diabetes, Gestational Hematologic History: Reports: None Immunologic History: Reports: None Oncologic (Cancer) History: Reports: None Dermatologic History: Reports: None - Infectious Disease History Infectious Disease History: Reports: None - Past Surgical History Head Surgeries/Procedures: Reports: None HEENT Surgical History: Reports: None Cardiovascular Surgical History: Reports: None Respiratory Surgical History: Reports: None GI Surgical History: Reports: None Female Surgical History: Reports: None Endocrine Surgical History: Reports: None Neurological Surgical History: Reports: None 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 Surgical History: Reports: None Oncologic Surgical History: Reports: None Dermatological Surgical History: Reports: None Social & Family History - Family History Family Medical History: No Pertinent Family History HEENT: Reports: None Cardiac: Reports: Hypertension Respiratory: Reports: None GI: Reports: None : Reports: None OBGYN: Reports: None 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: Reports: None Neurological: Reports: None Psychiatric: Reports: None Endocrine/Metabolic: Reports: Diabetes, type II Hematologic: Reports: None Immunologic: Reports: None Dermatologic: Reports: None Oncologic: Reports: None - Tobacco Use Tobacco Use Status *Q: Never Tobacco User Second Hand Smoke Exposure: No - Caffeine Use Caffeine Use: Reports: None - Recreational Drug Use Recreational Drug Use: Yes Recreational Drug Type: Reports: Marijuana/Hashish Recreational Drug Use Frequency: Daily - Living Situation & Occupation Living situation: Reports: with Family ED ROS GENERAL - Review of Systems Review Of Systems: Comprehensive ROS is negative, except as noted in HPI. ED EXAM, GI/ABD - Physical Exam Exam: See Below Exam Limited By: No Limitations General Appearance: Alert, No Apparent Distress Eyes: Bilateral: Normal Appearance Ears: Normal External Exam, Hearing Grossly Normal Nose: Normal Inspection, Normal Mucosa, No Blood Throat/Mouth: Normal Inspection, Normal Oropharynx, Normal Voice, No Airway Compromise Head: Atraumatic, Normocephalic Neck: Normal Inspection Respiratory/Chest: No Respiratory Distress, Lungs Clear, Normal Breath Sounds, No Accessory Muscle Use, Chest Non-Tender Cardiovascular: Normal Peripheral Pulses, Regular Rate, Rhythm, No Gallop, No Murmur, No Rub (Female) Exam: Deferred Rectal (Female) Exam: Deferred Back Exam: Normal Inspection, Full Range of Motion Extremities: Normal Inspection, Normal Range of Motion, Normal Capillary Refill Neurological: Alert, Oriented, CN II-XII Intact, Normal Cognition, Normal Gait, No Motor/Sensory Deficits Psychiatric: Normal Affect, Normal Mood Skin Exam: Warm, Dry, Intact, Normal Color, No Rash. No: Cyanosis, Jaundice, Mottled, Pallor Lymphatic: No Adenopathy Course - Vital Signs Last Recorded V/S: Last Vital Signs Temp 97.7 F 05/30/21 06:33 Pulse 64 05/30/21 06:33 Resp 16 05/30/21 06:33 BP 104/70 05/30/21 06:33 Pulse Ox 97 05/30/21 06:33 - Orders/Labs/Meds Labs: Laboratory Tests 05/30/21 05/30/2105/30/21 Range/Units 06:15 06:15 06:15 WBC 13.3 H (5.0-10.0) 10^3/uL RBC 4.51 (4.2-5.4) 10^6/uL Hgb 12.9 (12.0-16.0) g/dL Hct 38.9 (37.0-47.0) % MCV 86.3 (80-100) fL MCH 28.6 (27.0-34.0) pg MCHC 33.2 (33.0-35.0) g/dL Plt Count 273 (150-450) 10^3/uL Neut % (Auto) 79.2 H (42.2-75.2) % Lymph % (Auto) 12.4 L (20.5-50.1) % [place] % (Auto) 6.6 (2-8) % Eos % (Auto) 1.7 (1.0-3.0) % Baso % (Auto) 0.1 (0.0-1.0) % Sodium 136 (136-145) mmol/L Potassium 4.1 (3.5-5.1) mmol/L Chloride 104 (98-107) mmol/L Carbon Dioxide 21 (21-32) mmol/L Anion Gap 15.1 H (7-13) mEq/L BUN 11 (7-18) mg/dL Creatinine 0.70 (0.55-1.02) mg/dL Est Cr Clr Drug Dosing 118.01 mL/min Estimated GFR (MDRD) > 60 BUN/Creatinine Ratio 15.7 (No establ ref range) Glucose 101 H (70-99) mg/dL Lactic Acid 0.8 (0.4-2.0) mmol/L Calcium 8.9 (8.5-10.1) mg/dL Total Bilirubin 0.5 (0.2-1.0) mg/dL AST 22 (15-37) U/L ALT 59 (14-59) U/L Alkaline Phosphatase 94 (46-116) U/L Total Protein 7.7 (6.4-8.2) g/dL Albumin 3.7 (3.4-5.0) g/dL Globulin 4.0 Albumin/Globulin Ratio 0.9 Amylase 44 (25-115) U/L Lipase 166 (73-393) U/L HCG, Qual Negative Urine Color (YELLOW) Urine Appearance (CLEAR) Urine pH (5.0-9.0) Ur Specific [place] (1.005-1.030) Urine Protein (NEGATIVE) Urine Glucose (UA) (NEGATIVE) Urine Ketones (NEGATIVE) Urine Occult Blood (NEGATIVE) Urine Nitrite (NEGATIVE) Urine Bilirubin (NEGATIVE) Urine Urobilinogen (0.2-1.0) mg/dL Ur Leukocyte Esterase (NEGATIVE) Urine RBC (0-5) /HPF Urine WBC (0-5/HPF) /HPF Ur Epithelial Cells (NOT SEEN) /HPF Urine Bacteria (0-FEW/HPF) /HPF Urine Mucus (NOT SEEN) /LPF 05/30/21 Range/Units 06:15 WBC (5.0-10.0) 10^3/uL RBC (4.2-5.4) 10^6/uL Hgb (12.0-16.0) g/dL Hct (37.0-47.0) % MCV (80-100) fL MCH (27.0-34.0) pg MCHC (33.0-35.0) g/dL Plt Count (150-450) 10^3/uL Neut % (Auto) (42.2-75.2) % Lymph % (Auto) (20.5-50.1) % [place] % (Auto) (2-8) % Eos % (Auto) (1.0-3.0) % Baso % (Auto) (0.0-1.0) % Sodium (136-145) mmol/L Potassium (3.5-5.1) mmol/L Chloride (98-107) mmol/L Carbon Dioxide (21-32) mmol/L Anion Gap (7-13) mEq/L BUN (7-18) mg/dL Creatinine (0.55-1.02) mg/dL Est Cr Clr Drug Dosing mL/min Estimated GFR (MDRD) BUN/Creatinine Ratio (No establ ref range) Glucose (70-99) mg/dL Lactic Acid (0.4-2.0) mmol/L Calcium (8.5-10.1) mg/dL Total Bilirubin (0.2-1.0) mg/dL AST (15-37) U/L ALT (14-59) U/L Alkaline Phosphatase (46-116) U/L Total Protein (6.4-8.2) g/dL Albumin (3.4-5.0) g/dL Globulin Albumin/Globulin Ratio Amylase (25-115) U/L Lipase (73-393) U/L HCG, Qual Urine Color Yellow (YELLOW) Urine Appearance Clear (CLEAR) Urine pH 6.0 (5.0-9.0) Ur Specific [place] >= 1.030 (1.005-1.030) Urine Protein Negative (NEGATIVE) Urine Glucose (UA) Negative (NEGATIVE) Urine Ketones Negative (NEGATIVE) Urine Occult Blood Negative (NEGATIVE) Urine Nitrite Negative (NEGATIVE) Urine Bilirubin Negative (NEGATIVE) Urine Urobilinogen 0.2 (0.2-1.0) mg/dL Ur Leukocyte Esterase Trace H (NEGATIVE) Urine RBC Not seen (0-5) /HPF Urine WBC 30-40 H (0-5/HPF) /HPF Ur Epithelial Cells Many H (NOT SEEN) /HPF Urine Bacteria Many H (0-FEW/HPF) /HPF Urine Mucus Moderate H (NOT SEEN) /LPF Meds: Medications Discontinued Medications Generic Name Dose Route Start Last Admin Trade Name Connor PRN Reason Stop Dose Admin Iopamidol 100 ml 05/30/21 07:26 05/30/21 07:43 Iopamidol 612 Mg/Ml 100 Ml Bottle IVPUSH 05/30/21 07:27 75 ml ONETIME ONE Administration - Radiology Interpretation Free Text/Narrative:: [facility] Final Radiology Report Call: [phone] assistance Online chat: [email or web address] Name: CHAGO CARTER Age: 20Years F Date: 05/30/2021 SSN: -- : 2000 Study: CT ABDOMEN PELVIS W CONT Requesting Physician: Ana Luisa Forrester Images: [phone] Addl Studies: Provided Clinical History: Bilateral upper quadrant pain Contrast: With Contrast Medium: isovue 300 Contrast Amount: 75 mL Contrast Method: Intravenous (IV) Page 1 of 2 PROCEDURE INFORMATION: Exam: CT Abdomen And Pelvis With Contrast Exam date and time: 05/30/2021 7:32 AM Age: 20 years old Clinical indication: Other: Bilateral upper quadrant pain TECHNIQUE: Imaging protocol: Computed tomography of the abdomen and pelvis with contrast. Radiation optimization: All CT scans at this facility use at least one of these dose optimization techniques: automated exposure control; mA and/or kV adjustment per patient size (includes targeted exams where dose is matched to clinical indication); or iterative reconstruction. Contrast material: ISOVUE 300; Contrast volume: 75 ml; Contrast route: INTRAVENOUS (IV); COMPARISON: CR Chest 1V Frontal 05/25/2021 2:03 AM FINDINGS: Liver: Hepatomegaly. No mass. Gallbladder and bile ducts: Normal. No calcified stones. No ductal dilation. Pancreas: Normal. No ductal dilation. Spleen: Normal. No splenomegaly. Adrenal glands: Normal. No mass. Kidneys and ureters: Normal. No hydronephrosis. Stomach and bowel: Bowel wall thickening involving multiple small bowel loops. Under distension versus enteritis is considered. Appendix: No evidence of appendicitis. Intraperitoneal space: Small hemoperitoneum in the pelvis. Vasculature: Unremarkable. No abdominal aortic aneurysm. Lymph nodes: Nonspecific mesenteric adenopathy. Urinary bladder: Unremarkable as visualized. Reproductive: Involuting hemorrhagic left ovarian corpus luteal cyst. Bones/joints: Unremarkable. No acute fracture. Soft tissues: Unremarkable. IMPRESSION: Involuting hemorrhagic left ovarian corpus luteal cyst. Small hemoperitoneum in the pelvis. Bowel wall thickening involving multiple small bowel loops. Under distension versus enteritis is considered. Thank you for allowing us to participate in the care of your patient. Dictated and Authenticated by: Austin Bazzi MD 05/30/2021 8:23 AM Central Time ([place] & [place]) - Re-Assessments/Exams Free Text/Narrative Re-Assessment/Exam: 05/30/21 CT abdomen/pelvis obtained given physical exam and blood work. Findings of examination, lab work, and imaging reviewed with patient. Supportive cares for enteritis and cystic rupture discussed. Patient instructed to follow up with primary care provider regarding todays visit. Red flag signs and symptoms which would warrant immediate reevaluation reviewed. Patient verbalized understanding and agreement with the plan of care. Departure - Departure Time of Disposition: 08:50 Disposition: Home, Self-Care 01 Condition: Good Clinical Impression: Corpus luteum cyst hemorrhage, Corpus luteum cyst of left ovary, Enteritis - Discharge Information *PRESCRIPTION DRUG MONITORING PROGRAM REVIEWED*: Not Applicable *COPY OF PRESCRIPTION DRUG MONITORING REPORT IN PATIENT SONU: Not Applicable Instructions: Ovarian Cyst Referrals: Wendy Alberto MD [Primary Care Provider] - Forms: ED Department Discharge Additional Instructions: 1.) You may take ibuprofen (Advil/Motrin) 400mg every six hours, as pain persists. You may also take acetaminophen (Tylenol) 650-1000mg every six hours, as pain persists. You may stagger these medications so you are taking a dose of either every three hours. 2.) You may apply a warm compress to the areas of discomfort; 20 minutes, every hour. 3.) Follow up with your primary care provider in 3-5 days should symptoms persist or worsen. Sepsis Event Note (ED) - Evaluation Sepsis Screening Result: No Definite Risk - Focused Exam Vital Signs: Vital Signs Temp Pulse Resp BP Pulse Ox 05/30/21 06:33 97.7 F 64 16 104/70 97
[2021-05-30] MEDS ORDERED: Iopamidol 612 MG/ML 100 ML Bottle IVPUSH ONE (07:26)
--- NOTE | 2021-05-30 08:24 | CT ---
PROCEDURE INFORMATION: Exam: CT Abdomen And Pelvis With Contrast Exam date and time: 05/30/2021 7:32 AM Age: 20 years old Clinical indication: Other: Bilateral upper quadrant pain TECHNIQUE: Imaging protocol: Computed tomography of the abdomen and pelvis with contrast. Radiation optimization: All CT scans at this facility use at least one of these dose optimization techniques: automated exposure control; mA and/or kV adjustment per patient size (includes targeted exams where dose is matched to clinical indication); or iterative reconstruction. Contrast material: ISOVUE 300; Contrast volume: 75 ml; Contrast route: INTRAVENOUS (IV); COMPARISON: CR Chest 1V Frontal 05/25/2021 2:03 AM FINDINGS: Liver: Hepatomegaly. No mass. Gallbladder and bile ducts: Normal. No calcified stones. No ductal dilation. Pancreas: Normal. No ductal dilation. Spleen: Normal. No splenomegaly. Adrenal glands: Normal. No mass. Kidneys and ureters: Normal. No hydronephrosis. Stomach and bowel: Bowel wall thickening involving multiple small bowel loops. Under distension versus enteritis is considered. Appendix: No evidence of appendicitis. Intraperitoneal space: Small hemoperitoneum in the pelvis. Vasculature: Unremarkable. No abdominal aortic aneurysm. Lymph nodes: Nonspecific mesenteric adenopathy. Urinary bladder: Unremarkable as visualized. Reproductive: Involuting hemorrhagic left ovarian corpus luteal cyst. Bones/joints: Unremarkable. No acute fracture. Soft tissues: Unremarkable. IMPRESSION: Involuting hemorrhagic left ovarian corpus luteal cyst. Small hemoperitoneum in the pelvis. Bowel wall thickening involving multiple small bowel loops. Under distension versus enteritis is considered.
== END 2021-05-30 08:55 | disposition home or self-care (01) ==
LOC: DL.ED 05:35
DX: K52.9 Noninfective gastroenteritis and colitis, unspecified (principal); N83.12 Corpus luteum cyst of left ovary
CPT/HCPCS: 36415; 74177; 80053; 81001; 82150; 83605; 83690; 84703; 85025; 99284; Q9967

== ENCOUNTER 2021-07-03 16:00 | Emergency (ER) | payer MEDICAID ==
[2021-07-03 16:41] VITALS: BP 127/90; PULSE 90
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
[2021-07-03] MEDS ORDERED: Amoxicillin/Clavulanate K 875-125 MG Tab PO ONE (17:29)
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
== END 2021-07-03 19:32 | disposition home or self-care (01) ==
LOC: DL.ED 16:00
DX: S21.151A Open bite of right front wall of thorax without penetration into thoracic cavity, initial encounter (principal); S00.03XA Contusion of scalp, initial encounter; Y04.1XXA Assault by human bite, initial encounter
CPT/HCPCS: 70450; 70486; 99284; A9270

== ENCOUNTER 2021-07-19 02:45 | Emergency (ER) | payer MEDICAID ==
[2021-07-19] MEDS ORDERED: Sodium Chloride 0.9% 10 ML Syringe FLUSH PRN (03:07)
[2021-07-19 03:48] LABS: AMPHETAMINES,URINE NEGATIVE (NEGATIVE); BARBITURATES,URINE NEGATIVE (NEGATIVE); BENZODIAZEPINE,URINE NEGATIVE (NEGATIVE); MDMA (ECSTASY), URINE NEGATIVE (NEGATIVE); METHADONE,URINE NEGATIVE (NEGATIVE); METHAMPHETAMINES,URINE NEGATIVE (NEGATIVE); OPIATES,URINE NEGATIVE (NEGATIVE); OXYCODONE,URINE NEGATIVE (NEGATIVE); PHENCYCLIDINE,URINE NEGATIVE (NEGATIVE); TCA,URINE NEGATIVE (NEGATIVE)
[2021-07-19 03:51] LABS: CORONAVIRUS COVID-19 NAA NEGATIVE (NEGATIVE)
[2021-07-19 03:55] LABS: ANION GAP 16.5 mEq/L (7-13); CHLORIDE,CL 102 mmol/L (98-107); SODIUM,NA 138 mmol/L (136-145)
[2021-07-19 04:06] VITALS: BP 105/59; PULSE 54
== END 2021-07-19 05:59 | disposition home or self-care (01) ==
LOC: DL.ED 02:45
DX: R07.89 Other chest pain (principal); Z87.891 Personal history of nicotine dependence; Z20.822 Contact with and (suspected) exposure to COVID-19
CPT/HCPCS: 0240U; 36415; 71045; 80053; 80305; 80307; 82150; 83605; 83690; 83735; 84443; 84484; 84703; 85025; 86140; 93005; 99285

== ENCOUNTER 2023-02-24 01:57 | Emergency (ER) | payer SELFPAY ==
[2023-02-24 02:11] VITALS: BP 130/88; PULSE 88
[2023-02-24] MEDS ORDERED: Ketorolac 30 MG/ML SDV IVPUSH ONE (02:37)
[2023-02-24] MEDS ORDERED: Ondansetron 4 MG/2 ML SDV IVPUSH ONE (02:37)
[2023-02-24] MEDS ORDERED: Sodium Chloride 0.9% 1,000 ML IV ONE (02:37)
[2023-02-24] MEDS ORDERED: Ketorolac 10 MG Tab PO ONE (02:57)
== END 2023-02-24 04:15 | disposition home or self-care (01) ==
LOC: DL.ED 01:57
DX: J06.9 Acute upper respiratory infection, unspecified (principal); Z20.822 Contact with and (suspected) exposure to COVID-19
CPT/HCPCS: 87081; 87430; 96374; 99284; 99284-25; A9270-GY; J2405; J7030; U0002

== ENCOUNTER 2025-02-13 06:55 | Inpatient (IN) | payer MEDICAID ==
[2025-02-13] MEDS ORDERED: Carboprost Tromethamine 250 MCG/1 ML Amp IM PRN (08:35)
[2025-02-13] MEDS ORDERED: Sodium Chloride 0.9% 10 ML Syringe FLUSH PRN (08:35)
[2025-02-13] MEDS ORDERED: fentaNYL 100 MCG/2 ML SDV IVPUSH PRN (08:35)
[2025-02-13] MEDS ORDERED: Ondansetron 4 MG/2 ML SDV IVPUSH PRN (08:35)
[2025-02-13 08:42] LABS: PLATELET COUNT,PLT 150.0 10^3/uL (150-450); RED BLOOD CELL COUNT 3.61 10^6/uL (4.2-5.4); WHITE BLOOD CELL COUNT,WBC 7.9 10^3/uL (5.0-10.0)
[2025-02-13] MEDS: Oxytocin/Normal Saline 30 UNIT/500 ML BAG IV SCH (08:49)
[2025-02-13] MEDS: Lactated Ringers 1,000 ML IV SCH (09:46)
[2025-02-13] MEDS ORDERED: ePHEDrine 50 MG/ML SDV IVPUSH PRN (13:40)
[2025-02-13] MEDS ORDERED: Ropivacaine 200 MG in Premix Bag 1 BAG EPIDUR SCH (13:45)
[2025-02-13] MEDS ORDERED: Oxytocin 10 Units/1 ML SDV IM PRN (16:29)
[2025-02-13] MEDS ORDERED: Witch Hazel Medicated Pads 100/Jar TOP PRN (16:29)
[2025-02-13] MEDS: Lactated Ringers 1,000 ML IV ONE (18:46)
[2025-02-13] MEDS: Benzocaine/Menthol 20%-0.5% Spray 78 GM Cannister TOP PRN (19:25)
[2025-02-14] MEDS: Measles, Mumps & Rubella Vaccine 0.5 ML SDV SUBCUT ONE (08:08)
[2025-02-14] MEDS: Prenatal Multivitamin with Calcium/Folic Acid/Iron Tab PO SCH (08:08)
[2025-02-14 08:17] VITALS: BP 110/54; PULSE 60
[2025-02-14] MEDS ORDERED: Ondansetron 4 MG/2 ML SDV IV ONE (17:29)
[2025-02-14] MEDS ORDERED: Ketorolac 30 MG/ML SDV IVPUSH ONE (17:29)
[2025-02-14] MEDS ORDERED: ePHEDrine 50 MG/ML SDV IV ONE (17:29)
[2025-02-14] MEDS ORDERED: Ropivacaine 100 ML EPIDUR ONE (17:29)
[2025-02-14] MEDS ORDERED: fentaNYL 100 MCG/2 ML SDV EPIDUR ONE (17:29)
== END 2025-02-14 17:30 | disposition home or self-care (01) | DRG 807 ==
LOC: DL.OB 08:03 → OBSVTOIN 16:15
PROVIDERS: ADMIT Family Medicine; ATTEND Family Medicine
PROC: 10E0XZZ Delivery of Products of Conception, External Approach (ICD-10-PCS; principal; 2025-02-13)
PROC: 3E0R3BZ Introduction of Anesthetic Agent into Spinal Canal, Percutaneous Approach (ICD-10-PCS; principal; 2025-02-13)
PROC: 3E0234Z Introduction of Serum, Toxoid and Vaccine into Muscle, Percutaneous Approach (ICD-10-PCS; principal; 2025-02-13)
DX: O99.02 Anemia complicating childbirth (principal); Z37.0 Single live birth; Z3A.39 39 weeks gestation of pregnancy; Z23 Encounter for immunization; Z79.899 Other long term (current) drug therapy
CPT/HCPCS: 36415; 51701; 59409; 82947; 85027; 90471; 90707; A9270-GY; J1885; J2405; J2590; J2795; J3010; J3490; J7120